=== PATIENT | male | born 1960 | race Two or more races ===

== ENCOUNTER 2020-12-21 07:49 | Inpatient (IN) | payer MEDICARE, OTHER ==
[~2020-12-21] VITALS: Ht 175.3 cm; Wt 133.8 kg
[2020-12-21 10:10] LABS: Basophils # (auto) 0.1 10 ^3/uL (0-0.2); Eosinophils # (auto) 0 10 ^3/uL (0-0.8); Monocytes # (auto) 0.7 10 ^3/uL (0-1.3)
[2020-12-21 10:13] LABS: Basophils % (auto) 0.8 % (0.0-2.0); Hematocrit 46.7 % (41.0-53.0); Lymphocytes # (auto) 1.8 10 ^3/uL (0.4-5.4); Lymphocytes % (auto) 17.4 % (10.0-50.0); Mean Corpuscular Hemoglobin 25.2 pg (28.0-32.0); Mean Corpuscular Hgb Conc. 32.1 g/dL (32.0-36.0); Mean Corpuscular Volume 78.4 fL (80.0-100.0); Monocytes % (auto) 6.8 % (0.0-12.0); Neutrophils # (auto) 7.7 10 ^3/uL (1.6-8.6); Red Blood Cells 5.95 10^6/uL (4.5-5.90); Red Cell Distribution Width 20.7 % (11.8-14.3); White Blood Cell 10.2 10^3/uL (4.4-10.8)
[2020-12-21 10:21] LABS: INR 1.01 (0.9-1.15); Partial Thromboplastin Time 23.8 sec (23.0-31.2)
[2020-12-21 10:26] LABS: Albumin 3.8 g/dL (3.4-5.0); Calcium 10.1 mg/dL (8.5-10.1); Potassium 4.3 mmol/L (3.5-5.1)
[2020-12-21 10:31] LABS: BUN/Creatinine Ratio 25.9; Bilirubin, Total 0.3 mg/dL (0.2-1.0)
[2020-12-21 10:34] LABS: Amylase 156 U/L (25-115); Magnesium 2.2 mg/dL (1.6-2.6)
[2020-12-21 10:36] LABS: Lactic Acid w/Reflex 2.9 mmol/L (0.4-2.0)
[2020-12-21 10:44] LABS: Lipase 2130 U/L (73-393)
[2020-12-21] MEDS ORDERED: THIAMINE INJ 100 MG in SODIUM CHLORIDE 0.9% 1,000 ML IV ONE (11:00)
[2020-12-21] MEDS ORDERED: SODIUM CHLORIDE 0.9% 1,000 ML IV ONE ×2 (11:00→12:15)
[2020-12-21] MEDS ORDERED: MULTIPLE VITAMIN TAB PO ONE (12:30)
[2020-12-21] MEDS ORDERED: NITROGLYCERIN 0.4 MG SL TAB SL PRN (12:30)
[2020-12-21] MEDS ORDERED: ONDANSETRON HCL 4 MG/2 ML VIAL IV PRN (12:30)
[2020-12-21] MEDS ORDERED: MORPHINE SULFATE INJECTION 2 MG/ML SYRG IV PRN ×2 (12:30)
[2020-12-21] MEDS ORDERED: THIAMINE 100mg/ml INJ (200mg/2ml VIAL) IV ONE (13:15)
[2020-12-21] MEDS: LACTATED RINGER'S 1,000 ML IV SCH ×2 (14:20→23:01)
[2020-12-21] MEDS: SUCRALFATE 1 GM/10 ML ORAL SUSP PO SCH ×2 (18:00→23:02)
[2020-12-21 20:00] VITALS: BP 152/96
[2020-12-21] MEDS: PANTOPRAZOLE 40 MG/10 ML VIAL INJ IV SCH (23:01)
[2020-12-21 23:22] VITALS: BP 152/96
[2020-12-22] VITALS (7 sets, daily range): BP systolic 130–153; BP diastolic 78–94
[2020-12-22] MEDS: LACTATED RINGER'S 1,000 ML IV SCH ×3 (04:25→20:53)
[2020-12-22] MEDS: SUCRALFATE 1 GM/10 ML ORAL SUSP PO SCH ×4 (06:05→21:21)
[2020-12-22] MEDS ORDERED: ATOR40TA52 PO (07:54)
[2020-12-22] MEDS ORDERED: GABA300C10 PO (07:54)
[2020-12-22] MEDS ORDERED: LISI-275 PO (07:54)
[2020-12-22] MEDS ORDERED: SUCR1TAB PO (07:54)
[2020-12-22] MEDS ORDERED: PNEUMOCOCCAL VACC POLYS 25 MCG/0.5 ML VIAL IM ONE (08:00)
[2020-12-22 09:23] LABS: Basophils # (auto) 0 10 ^3/uL (0-0.2); Basophils % (auto) 0.6 % (0.0-2.0); Eosinophils # (auto) 0 10 ^3/uL (0-0.8); Eosinophils % (auto) 0.5 % (0.0-7.0); Hematocrit 40.7 % (41.0-53.0); Hemoglobin 13.1 g/dL (13.5-17.5); Lymphocytes # (auto) 1.3 10 ^3/uL (0.4-5.4); Lymphocytes % (auto) 18.2 % (10.0-50.0); Mean Corpuscular Hemoglobin 25.2 pg (28.0-32.0); Mean Corpuscular Hgb Conc. 32.1 g/dL (32.0-36.0); Mean Corpuscular Volume 78.4 fL (80.0-100.0); Monocytes # (auto) 0.8 10 ^3/uL (0-1.3); Monocytes % (auto) 10.5 % (0.0-12.0); Neutrophils # (auto) 5.2 10 ^3/uL (1.6-8.6); Neutrophils % (auto) 70.2 % (37.0-80.0); Nucleated Red Blood Cells % 0.3 %; Red Blood Cells 5.19 10^6/uL (4.5-5.90); White Blood Cell 7.4 10^3/uL (4.4-10.8)
[2020-12-22 09:24] LABS: Red Cell Distribution Width 20.7 % (11.8-14.3)
[2020-12-22 09:36] LABS: INR 0.99 (0.9-1.15); Partial Thromboplastin Time 24.8 sec (23.0-31.2)
[2020-12-22 09:40] LABS: Albumin 3.2 g/dL (3.4-5.0); BUN/Creatinine Ratio 15.4; Bilirubin, Total 0.6 mg/dL (0.2-1.0); Calcium 9.5 mg/dL (8.5-10.1); Total Protein 6.7 g/dL (6.4-8.2)
[2020-12-22] MEDS: THIAMINE HCL 100 MG TAB PO SCH (09:54)
[2020-12-22] MEDS: FOLIC ACID 1 MG TAB PO SCH (09:54)
[2020-12-22] MEDS: PANTOPRAZOLE 40 MG/10 ML VIAL INJ IV SCH ×2 (09:54→21:21)
[2020-12-22 11:45] LABS: Urine WBC None Seen /hpf (0 - 3)
[2020-12-22 11:56] LABS: Urine Bacteria NONE SEEN /hpf (None Seen); Urine Blood Negative /uL (Negative); Urine Specific Gravity 1.012 (1.001-1.035)
[2020-12-22] MEDS ORDERED: cloNIDine HCL 0.1 MG TAB PO PRN (14:30)
[2020-12-22] MEDS: ACETAMINOPHEN 500 MG TAB PO PRN (15:33)
[2020-12-23] MEDS: ACETAMINOPHEN 500 MG TAB PO PRN (01:47)
[2020-12-23] MEDS: LACTATED RINGER'S 1,000 ML IV SCH ×4 (04:23→23:33)
[2020-12-23 05:00] VITALS: BP 143/83
[2020-12-23] MEDS: SUCRALFATE 1 GM/10 ML ORAL SUSP PO SCH ×4 (06:27→22:22)
[2020-12-23 06:48] LABS: Albumin 3.1 g/dL (3.4-5.0); Calcium 10.1 mg/dL (8.5-10.1); Potassium 3.9 mmol/L (3.5-5.1)
[2020-12-23 06:50] LABS: BUN/Creatinine Ratio 7.1
[2020-12-23 06:51] LABS: Basophils # (auto) 0 10 ^3/uL (0-0.2); Eosinophils # (auto) 0.1 10 ^3/uL (0-0.8); Lymphocytes # (auto) 1.5 10 ^3/uL (0.4-5.4); Monocytes # (auto) 0.7 10 ^3/uL (0-1.3); Neutrophils # (auto) 3.3 10 ^3/uL (1.6-8.6); White Blood Cell 5.6 10^3/uL (4.4-10.8)
[2020-12-23 06:52] LABS: Bilirubin, Total 0.5 mg/dL (0.2-1.0); Total Protein 6.2 g/dL (6.4-8.2)
[2020-12-23 06:53] LABS: Basophils % (auto) 0.9 % (0.0-2.0); Eosinophils % (auto) 1.8 % (0.0-7.0); Hematocrit 40.2 % (41.0-53.0); Hemoglobin 13.1 g/dL (13.5-17.5); Mean Corpuscular Hemoglobin 25.8 pg (28.0-32.0); Mean Corpuscular Hgb Conc. 32.5 g/dL (32.0-36.0); Mean Corpuscular Volume 79.3 fL (80.0-100.0); Monocytes % (auto) 13.3 % (0.0-12.0); Red Blood Cells 5.06 10^6/uL (4.5-5.90); Red Cell Distribution Width 20.6 % (11.8-14.3)
[2020-12-23 08:00] VITALS: BP 120/89
[2020-12-23 09:00] VITALS: BP 120/89
[2020-12-23] MEDS: FOLIC ACID 1 MG TAB PO SCH (09:22)
[2020-12-23] MEDS: PANTOPRAZOLE 40 MG/10 ML VIAL INJ IV SCH (09:22)
[2020-12-23] MEDS: THIAMINE HCL 100 MG TAB PO SCH (09:22)
[2020-12-23 13:00] VITALS: BP 147/91
[2020-12-23 16:53] VITALS: BP 157/85
[2020-12-23] MEDS ORDERED: THROAT LOZENGES(CEPASTAT) MT PRN (22:15)
[2020-12-24 05:15] VITALS: BP 158/83
[2020-12-24] MEDS: SUCRALFATE 1 GM/10 ML ORAL SUSP PO SCH ×2 (06:25→12:00)
[2020-12-24 09:00] VITALS: BP 147/85
[2020-12-24] MEDS: LACTATED RINGER'S 1,000 ML IV SCH (09:32)
[2020-12-24] MEDS: FOLIC ACID 1 MG TAB PO SCH (09:50)
[2020-12-24] MEDS: THIAMINE HCL 100 MG TAB PO SCH (09:50)
[2020-12-24] MEDS ORDERED: PANTOPRAZOLE 40 MG TAB PO SCH (10:00)
[2020-12-24 13:00] VITALS: BP 149/91
[2020-12-24 17:00] VITALS: BP 155/74
[2021-05-24] MEDS ORDERED: ASPI1TAB20 PO (03:23)
== END 2020-12-24 17:00 | disposition home or self-care (01) | DRG 438 ==
LOC: ER 07:49 → TELE 07:50 → TELE-WESTW 12-22 03:43
PROVIDERS: ADMIT Nurse Practitioner Acute Care; ATTEND Internal Medicine
DX: K85.20 Alcohol induced acute pancreatitis without necrosis or infection (principal); U07.1 COVID-19; J12.82 Pneumonia due to coronavirus disease 2019; Z68.41 Body mass index [BMI] 40.0-44.9, adult; K29.20 Alcoholic gastritis without bleeding; K57.30 Diverticulosis of large intestine without perforation or abscess without bleeding; F10.229 Alcohol dependence with intoxication, unspecified; E66.9 Obesity, unspecified; I10 Essential (primary) hypertension; K44.9 Diaphragmatic hernia without obstruction or gangrene; Y90.7 Blood alcohol level of 200-239 mg/100 ml; E78.5 Hyperlipidemia, unspecified; R16.0 Hepatomegaly, not elsewhere classified; N21.0 Calculus in bladder; K76.0 Fatty (change of) liver, not elsewhere classified; Z87.11 Personal history of peptic ulcer disease
CPT/HCPCS: 36415; 74176; 80053; 80320; 81001; 82150; 82270; 83605; 83690; 83735; 84484; 85025; 85610; 85730; 87426; C9113; G0378; J2405

== ENCOUNTER 2021-05-23 20:08 | Inpatient (IN) | payer MEDICARE, OTHER ==
[~2021-05-23] VITALS: Ht 175.3 cm; Wt 124.7 kg
[~2021-05-23 20:08] MED LIST: ATOR40TA52 PO; GABA300C10 PO; LISI-275 PO; SUCR1TAB PO
[2021-05-23] MEDS ORDERED: SODIUM CHLORIDE 0.9% 500 ML IV ONE (20:30)
[2021-05-23 21:01] LABS: Basophils # (auto) 0 10 ^3/uL (0-0.2); Eosinophils # (auto) 0.5 10 ^3/uL (0-0.8); Hematocrit 46.6 % (41.0-53.0); Hemoglobin 15.3 g/dL (13.5-17.5); Lymphocytes # (auto) 1.9 10 ^3/uL (0.4-5.4); Lymphocytes % (auto) 24.8 % (10.0-50.0); Mean Corpuscular Hemoglobin 29.7 pg (28.0-32.0); Mean Corpuscular Hgb Conc. 32.9 g/dL (32.0-36.0); Mean Corpuscular Volume 90.3 fL (80.0-100.0); Monocytes # (auto) 0.5 10 ^3/uL (0-1.3); Neutrophils # (auto) 4.9 10 ^3/uL (1.6-8.6); Neutrophils % (auto) 63.2 % (37.0-80.0); Red Blood Cells 5.16 10^6/uL (4.5-5.90); Red Cell Distribution Width 14.9 % (11.8-14.3); White Blood Cell 7.7 10^3/uL (4.4-10.8)
[2021-05-23 21:13] LABS: Albumin 3.5 g/dL (3.4-5.0); Anion Gap 8 (5-15); Blood Urea Nitrogen 29 mg/dL (7-18); Calcium 9.8 mg/dL (8.5-10.1); Carbon Dioxide 24 mmol/L (21-32); Chloride 106 mmol/L (98-107); Glucose 138 mg/dL (74-106); Magnesium 2.3 mg/dL (1.6-2.6); Potassium 4.8 mmol/L (3.5-5.1); Sodium 138 mmol/L (136-145)
[2021-05-23 21:19] LABS: Alanine Aminotransferase 33 U/L (16-61); Alkaline Phosphatase 106 U/L (45-117); Aspartate Aminotransferase 28 U/L (15-37); BUN/Creatinine Ratio 17.3; Bilirubin, Total 0.2 mg/dL (0.2-1.0); GFR African American 54 mL/min; GFR Non-African American 44 mL/min; Total Protein 6.9 g/dL (6.4-8.2)
[2021-05-23] MEDS ORDERED: MORPHINE SULF INJ 2 MG/ML SYRINGE 1ML IV PRN (21:30)
[2021-05-23] MEDS ORDERED: ALBUMIN 5% 250 ML IV ONE (21:30)
[2021-05-23] MEDS ORDERED: ONDANSETRON HCL 4 MG/2 ML VIAL IV PRN (21:30)
[2021-05-23] MEDS ORDERED: NITROGLYCERIN 0.4 MG SL TAB SL PRN (21:30)
[2021-05-23] MEDS ORDERED: ACETAMINOPHEN 325 MG TAB PO PRN (21:30)
[2021-05-23 21:40] LABS: Lactic Acid w/Reflex 2.3 mmol/L (0.4-2.0)
[2021-05-23] MEDS ORDERED: ATORVASTATIN 20 MG TAB PO SCH (22:00)
[2021-05-23] MEDS: SODIUM CHLORIDE 0.9% 1,000 ML IV SCH (22:28)
[2021-05-23] MEDS ORDERED: cefTRIAXone 1GM/50ML D5W 50 ML IV ONE (23:00)
[2021-05-24 03:13] LABS: Urine Bacteria FEW /hpf (None Seen); Urine Blood Negative /uL (Negative); Urine Hyaline Cast MANY /lpf (0 - 2); Urine Mucus FEW (None Seen); Urine Specific Gravity 1.021 (1.001-1.035); Urine WBC 6 /hpf (0 - 3)
[2021-05-24] MEDS ORDERED: ASPI-231 PO (03:23)
[2021-05-24 05:00] VITALS: BP 131/66
[2021-05-24 08:05] VITALS: BP 141/78
[2021-05-24] MEDS: SODIUM CHLORIDE 0.9% 1,000 ML IV SCH (08:37)
[2021-05-24 08:42] VITALS: BP 141/78
[2021-05-24 09:36] LABS: Basophils # (auto) 0 10 ^3/uL (0-0.2); Basophils % (auto) 0.7 % (0.0-2.0); Eosinophils # (auto) 0.1 10 ^3/uL (0-0.8); Eosinophils % (auto) 1.6 % (0.0-7.0); Hematocrit 43.8 % (41.0-53.0); Hemoglobin 14.6 g/dL (13.5-17.5); Lymphocytes # (auto) 1.5 10 ^3/uL (0.4-5.4); Lymphocytes % (auto) 25.1 % (10.0-50.0); Mean Corpuscular Hemoglobin 29.8 pg (28.0-32.0); Mean Corpuscular Hgb Conc. 33.4 g/dL (32.0-36.0); Mean Corpuscular Volume 89.3 fL (80.0-100.0); Monocytes # (auto) 0.6 10 ^3/uL (0-1.3); Monocytes % (auto) 9.2 % (0.0-12.0); Neutrophils # (auto) 3.8 10 ^3/uL (1.6-8.6); Neutrophils % (auto) 63.4 % (37.0-80.0); Nucleated Red Blood Cells % 0.1 %; Red Cell Distribution Width 15.1 % (11.8-14.3)
[2021-05-24 09:54] LABS: BUN/Creatinine Ratio 25.9; Calcium 9.3 mg/dL (8.5-10.1); Potassium 4.7 mmol/L (3.5-5.1)
[2021-05-24] MEDS ORDERED: PANTOPRAZOLE 40 MG TAB PO SCH (10:00)
[2021-05-24 12:53] VITALS: BP 157/85
[2021-05-24 12:58] VITALS: BP 157/85
[2021-05-24] MEDS ORDERED: cefTRIAXone 1GM/50ML D5W 50 ML IV SCH (22:00)
== END 2021-05-24 13:20 | disposition home or self-care (01) | DRG 315 ==
LOC: ER 20:12 → TELE 21:27 → TELE-WESTW 22:16
PROVIDERS: ADMIT Nurse Practitioner; ATTEND Family Medicine
DX: I95.9 Hypotension, unspecified (principal); N17.9 Acute kidney failure, unspecified; Z68.41 Body mass index [BMI] 40.0-44.9, adult; E86.0 Dehydration; E66.01 Morbid (severe) obesity due to excess calories; E78.00 Pure hypercholesterolemia, unspecified; E78.5 Hyperlipidemia, unspecified; Z20.822 Contact with and (suspected) exposure to COVID-19; I10 Essential (primary) hypertension; I25.2 Old myocardial infarction; Z83.3 Family history of diabetes mellitus
CPT/HCPCS: 36415; 71045; 80048; 80053; 81001; 82550; 83605; 83735; 83880; 84484; 85025; 85379; 87040; 87426; 93005; 93306; 96360; 96361; 99291; G0378; J0696

== ENCOUNTER 2021-08-28 12:33 | Emergency (ER) | payer MEDICARE, OTHER ==
[~2021-08-28] VITALS: Ht 175.3 cm; Wt 127.0 kg
[~2021-08-28 12:33] MED LIST changes: +ASPI1TAB20 PO; -SUCR1TAB PO
[2021-08-28 13:16] VITALS: BP 102/81
[2021-08-28] MEDS ORDERED: ONDANSETRON ODT 4 MG TAB PO ONE (15:15)
[2021-08-28] MEDS ORDERED: HYDROcodone-ACET 5/325MG TAB PO ONE (15:15)
== END 2021-08-28 15:34 | disposition home or self-care (01) ==
LOC: ER 12:33
DX: S83.91XA Sprain of unspecified site of right knee, initial encounter (principal); M71.21 Synovial cyst of popliteal space [Baker], right knee; X58.XXXA Exposure to other specified factors, initial encounter; Y93.89 Activity, other specified; Y92.89 Other specified places as the place of occurrence of the external cause; Y99.8 Other external cause status
CPT/HCPCS: 73700; 99284; Q0162

== ENCOUNTER 2021-12-23 12:06 | Emergency (ER) | payer MEDICARE, OTHER ==
[~2021-12-23] VITALS: Ht 175.3 cm; Wt 142.9 kg
[2021-12-23 12:13] VITALS: BP 122/99
[2021-12-23 13:25] LABS: Basophils # (auto) 0.1 10 ^3/uL (0-0.2); Eosinophils # (auto) 0.1 10 ^3/uL (0-0.8); Eosinophils % (auto) 0.9 % (0.0-7.0); Hematocrit 46.5 % (41.0-53.0); Hemoglobin 15.3 g/dL (13.5-17.5); Lymphocytes # (auto) 1.5 10 ^3/uL (0.4-5.4); Lymphocytes % (auto) 22.1 % (10.0-50.0); Mean Corpuscular Hemoglobin 29.9 pg (28.0-32.0); Mean Corpuscular Hgb Conc. 32.9 g/dL (32.0-36.0); Mean Corpuscular Volume 90.8 fL (80.0-100.0); Monocytes # (auto) 0.8 10 ^3/uL (0-1.3); Neutrophils # (auto) 4.2 10 ^3/uL (1.6-8.6); Nucleated Red Blood Cells % 0.1 %; Red Blood Cells 5.12 10^6/uL (4.5-5.90); Red Cell Distribution Width 14.3 % (11.8-14.3); White Blood Cell 6.6 10^3/uL (4.4-10.8)
[2021-12-23 13:42] LABS: Albumin 3.5 g/dL (3.4-5.0); Potassium 4.3 mmol/L (3.5-5.1)
[2021-12-23 13:50] LABS: BUN/Creatinine Ratio 16.3; Bilirubin, Total 0.7 mg/dL (0.2-1.0); Total Protein 6.6 g/dL (6.4-8.2)
== END 2021-12-23 18:26 | disposition left against medical advice (07) ==
LOC: ER 12:06
DX: R22.43 Localized swelling, mass and lump, lower limb, bilateral (principal); I10 Essential (primary) hypertension; I25.2 Old myocardial infarction; E78.5 Hyperlipidemia, unspecified; Z79.82 Long term (current) use of aspirin; Z79.899 Other long term (current) drug therapy
CPT/HCPCS: 36415; 71046; 80053; 83880; 84484; 85025; 93005; 93970

== ENCOUNTER 2022-01-08 14:27 | Inpatient (IN) | payer MEDICARE, OTHER ==
[~2022-01-08] VITALS: Ht 175.3 cm; Wt 145.0 kg
[2022-01-08] MEDS ORDERED: dilTIAZem 25 MG/5 ML VIAL IV ONE ×3 (15:15→17:45)
[2022-01-08 15:49] LABS: Basophils # (auto) 0.1 10 ^3/uL (0-0.2); Basophils % (auto) 0.6 % (0.0-2.0); Eosinophils # (auto) 0.1 10 ^3/uL (0-0.8); Eosinophils % (auto) 0.7 % (0.0-7.0); Hematocrit 40.1 % (41.0-53.0); Hemoglobin 13.2 g/dL (13.5-17.5); Lymphocytes # (auto) 1.9 10 ^3/uL (0.4-5.4); Lymphocytes % (auto) 20.2 % (10.0-50.0); Mean Corpuscular Hemoglobin 29.6 pg (28.0-32.0); Mean Corpuscular Volume 89.8 fL (80.0-100.0); Monocytes % (auto) 10.6 % (0.0-12.0); Neutrophils # (auto) 6.2 10 ^3/uL (1.6-8.6); Neutrophils % (auto) 67.9 % (37.0-80.0); Red Blood Cells 4.47 10^6/uL (4.5-5.90); Red Cell Distribution Width 13.8 % (11.8-14.3); White Blood Cell 9.2 10^3/uL (4.4-10.8)
[2022-01-08 16:02] LABS: Alanine Aminotransferase 17 U/L (16-61); Anion Gap 4 (5-15); Aspartate Aminotransferase 16 U/L (15-37); BUN/Creatinine Ratio 40.2; Blood Urea Nitrogen 39 mg/dL (7-18); Calcium 9.1 mg/dL (8.5-10.1); Carbon Dioxide 26 mmol/L (21-32); Chloride 110 mmol/L (98-107); GFR African American 101 mL/min; GFR Non-African American 83 mL/min; Glucose 114 mg/dL (74-106); Potassium 5.1 mmol/L (3.5-5.1); Sodium 140 mmol/L (136-145)
[2022-01-08 16:05] LABS: Alkaline Phosphatase 48 U/L (45-117); Bilirubin, Total 0.6 mg/dL (0.2-1.0); Total Protein 5.9 g/dL (6.4-8.2)
[2022-01-08 16:23] LABS: INR 1.13 (0.9-1.15)
[2022-01-08] MEDS ORDERED: DIGOXIN 0.125 MG TAB PO ONE (19:15)
[2022-01-08] MEDS ORDERED: METOPROLOL TARTRATE 1MG/1ML-5ML VIAL IV PRN (19:15)
[2022-01-08] MEDS ORDERED: NITROGLYCERIN 0.4 MG SL TAB SL PRN (19:15)
[2022-01-08] MEDS ORDERED: MORPHINE SULFATE INJECTION 2 MG/ML SYRG IV PRN ×2 (19:15→21:15)
[2022-01-08] MEDS ORDERED: ONDANSETRON HCL 4 MG/2 ML VIAL IV PRN (21:15)
[2022-01-08] MEDS ORDERED: MULTIPLE VITAMINS W/ MINERALS TAB PO ONE (21:15)
[2022-01-08] MEDS ORDERED: FOLIC ACID 1 MG TAB PO ONE (21:15)
[2022-01-08] MEDS ORDERED: SODIUM CHLORIDE 0.9% 1,000 ML IV SCH (21:15)
[2022-01-08] MEDS ORDERED: HYDROcodone-ACET 5/325MG TAB PO ONE (21:15)
[2022-01-08] MEDS ORDERED: DOCUSATE SOD 100 MG CAP PO PRN (21:15)
[2022-01-08] MEDS ORDERED: SUCRALFATE 1 GM/10 ML ORAL SUSP PO ONE (21:15)
[2022-01-08] MEDS: IPRATROPIUM BROM 0.5 MG/2.5ML INH SOL NEB ONE ×2 (21:15→21:59)
[2022-01-08] MEDS ORDERED: THIAMINE 100mg/ml INJ (200mg/2ml VIAL) IV ONE (21:15)
[2022-01-08] MEDS ORDERED: LORazepam 0.5 MG TAB PO PRN (21:15)
[2022-01-08] MEDS ORDERED: HYDROcodone-ACET 5/325MG TAB PO PRN (21:15)
[2022-01-08] MEDS ORDERED: LACTULOSE 20Gm/30ML SOLN PO PRN (21:15)
[2022-01-08] MEDS ORDERED: LORazepam 2MG/ML-1ML VIAL IV PRN (21:15)
[2022-01-08] MEDS ORDERED: cefTRIAXone 1GM/50ML D5W 50 ML IV ONE (21:30)
[2022-01-08] MEDS ORDERED: IPRATROPIUM BROM 0.5 MG/2.5ML INH SOL NEB SCH (22:00)
[2022-01-08] MEDS ORDERED: ATORVASTATIN 20 MG TAB PO SCH (22:00)
[2022-01-08] MEDS ORDERED: PANTOPRAZOLE 40 MG/10 ML VIAL INJ IV SCH (22:00)
[2022-01-08] MEDS ORDERED: IPRATROPIUM BROM 0.5 MG/2.5ML INH SOL NEB PRN (22:15)
[2022-01-08] MEDS: SUCRALFATE 1 GM/10 ML ORAL SUSP PO SCH (23:00)
[2022-01-08 23:41] LABS: INR 1.1 (0.9-1.15); Partial Thromboplastin Time 23.4 sec (23.6-33.0)
[2022-01-08] MEDS ORDERED: AMIODARONE HCL 150 MG in D5W 5% 100 ML IV ONE (23:45)
[2022-01-08 23:51] LABS: Magnesium 1.7 mg/dL (1.6-2.6); Phosphorus 2.1 mg/dL (2.5-4.90)
[2022-01-08] MEDS ORDERED: AMIODARONE HCL (50 MG/ ML) 3 ML VIAL IV ONE (23:57)
[2022-01-09 00:26] VITALS: BP 102/52
[2022-01-09 01:49] LABS: Alcohol, Urine < 3.0 mg/dL (0-10); Amphetamine Screen, Urine NEGATIVE (NEGATIVE); Barbiturate Scree,Urine NEGATIVE (NEGATIVE); Benzodiazephine Screen, Urine NEGATIVE (NEGATIVE); Cannabinoid Screen, Urine NEGATIVE (NEGATIVE); Cocaine Screen, Urine NEGATIVE (NEGATIVE); Phencyclidine Screen, Urine NEGATIVE (NEGATIVE)
[2022-01-09 01:52] LABS: Urine Bacteria NONE SEEN /hpf (None Seen); Urine Blood Negative /uL (Negative); Urine Specific Gravity 1.021 (1.001-1.035); Urine WBC <1 /hpf (0 - 3)
[2022-01-09 02:00] LABS: Opiate Scree,Urine NEGATIVE (NEGATIVE)
[2022-01-09 05:00] VITALS: BP 128/92
[2022-01-09] MEDS ORDERED: AMIODARONE 450mg/250ml AE 250 ML IV SCH ×2 (06:00)
[2022-01-09] MEDS ORDERED: FURO1TAB31 PO (06:02)
[2022-01-09] MEDS ORDERED: CARV25TA55 PO (06:02)
[2022-01-09] MEDS ORDERED: ATOR40TA52 PO (06:02)
[2022-01-09] MEDS ORDERED: DIGO0.12 PO (06:02)
[2022-01-09] MEDS: SUCRALFATE 1 GM/10 ML ORAL SUSP PO SCH (06:10)
[2022-01-09 07:25] LABS: Basophils # (auto) 0 10 ^3/uL (0-0.2); Basophils % (auto) 0.4 % (0.0-2.0); Eosinophils # (auto) 0.1 10 ^3/uL (0-0.8); Eosinophils % (auto) 0.6 % (0.0-7.0); Hematocrit 39.5 % (41.0-53.0); Hemoglobin 12.9 g/dL (13.5-17.5); Lymphocytes # (auto) 2.4 10 ^3/uL (0.4-5.4); Mean Corpuscular Hemoglobin 29.6 pg (28.0-32.0); Mean Corpuscular Hgb Conc. 32.8 g/dL (32.0-36.0); Mean Corpuscular Volume 90.3 fL (80.0-100.0); Monocytes % (auto) 10.9 % (0.0-12.0); Neutrophils # (auto) 5.7 10 ^3/uL (1.6-8.6); Neutrophils % (auto) 62.1 % (37.0-80.0); Red Blood Cells 4.37 10^6/uL (4.5-5.90); White Blood Cell 9.2 10^3/uL (4.4-10.8)
[2022-01-09 07:28] LABS: Albumin 3.6 g/dL (3.4-5.0); Calcium 8.8 mg/dL (8.5-10.1)
[2022-01-09 07:29] LABS: INR 1.08 (0.9-1.15); Partial Thromboplastin Time 23.1 sec (23.6-33.0)
[2022-01-09 07:31] LABS: BUN/Creatinine Ratio 43.1; Bilirubin, Total 0.9 mg/dL (0.2-1.0); CRP High Sensitivity 0.16 mg/dL (< 0.3); Phosphorus 2.7 mg/dL (2.5-4.90); Total Protein 6.7 g/dL (6.4-8.2)
[2022-01-09] MEDS ORDERED: PANCREATIC ENZYMES 4200 UNIT CAP PO SCH (08:00)
[2022-01-09] MEDS ORDERED: dilTIAZem 25 MG/5 ML VIAL IV ONE (09:00)
[2022-01-09] MEDS ORDERED: cefTRIAXone 1GM/50ML D5W 50 ML IV SCH (09:00)
[2022-01-09 09:24] VITALS: BP 136/101
[2022-01-09] MEDS ORDERED: MULTIPLE VITAMINS W/ MINERALS TAB PO SCH (10:00)
[2022-01-09] MEDS ORDERED: DIGOXIN 0.125 MG TAB PO SCH ×2 (10:00)
[2022-01-09] MEDS ORDERED: CYANOCOBALAMIN 500 MCG TAB PO SCH (10:00)
[2022-01-09] MEDS ORDERED: THIAMINE HCL 100 MG TAB PO SCH (10:00)
[2022-01-09] MEDS ORDERED: FOLIC ACID 1 MG TAB PO SCH (10:00)
[2022-01-09] MEDS ORDERED: dilTIAZem HCL 180MG ER CAP PO ONE (10:15)
[2022-01-09] MEDS ORDERED: DIGOXIN (250MCG/ML) 2 ML AMPULE IV ONE (10:15)
[2022-01-10] MEDS ORDERED: DIGOXIN 0.125 MG TAB PO SCH (10:00)
[2022-01-10] MEDS ORDERED: dilTIAZem HCL 180MG ER CAP PO SCH (10:00)
== END 2022-01-09 09:20 | disposition left against medical advice (07) | DRG 377 ==
LOC: ER 14:27 → TELE 19:01 → TELE-EAST 01-09 04:45
PROVIDERS: ADMIT Hospitalist; ATTEND Internal Medicine
DX: K92.2 Gastrointestinal hemorrhage, unspecified (principal); K85.90 Acute pancreatitis without necrosis or infection, unspecified; N39.0 Urinary tract infection, site not specified; E44.0 Moderate protein-calorie malnutrition; Z68.42 Body mass index [BMI] 45.0-49.9, adult; K86.1 Other chronic pancreatitis; I48.91 Unspecified atrial fibrillation; K76.0 Fatty (change of) liver, not elsewhere classified; Z53.29 Procedure and treatment not carried out because of patient's decision for other reasons; E07.9 Disorder of thyroid, unspecified; E66.01 Morbid (severe) obesity due to excess calories; E78.5 Hyperlipidemia, unspecified; I11.0 Hypertensive heart disease with heart failure; I50.9 Heart failure, unspecified; Z20.822 Contact with and (suspected) exposure to COVID-19; N20.9 Urinary calculus, unspecified; Z79.82 Long term (current) use of aspirin; Z83.3 Family history of diabetes mellitus; Z87.11 Personal history of peptic ulcer disease; Z79.899 Other long term (current) drug therapy
CPT/HCPCS: 36415; 71045; 80053; 80061; 80307; 81001; 82728; 83036; 83615; 83690; 83735; 83880; 84100; 84443; 84484; 85025; 85379; 85610; 85652; 85730; 86141; 86850; 86900; 86901; 87040; 87086; 87426; 93005; 94640; 96361; 96365; 96367; 96375; 96376; 99291; C9113; G0378; J0696; J7060

== ENCOUNTER 2022-02-16 16:16 | Inpatient (IN) | payer MEDICARE, OTHER ==
[~2022-02-16] VITALS: Ht 175.3 cm; Wt 150.2 kg
[~2022-02-16 16:16] MED LIST changes: +CARV25TA55 PO; +DIGO0.12 PO; +FURO1TAB31 PO
[2022-02-16] MEDS ORDERED: dilTIAZem 25 MG/5 ML VIAL IV ONE (16:45)
[2022-02-16] MEDS ORDERED: dilTIAZem 125mg/125ml BAG KIT 125 ML IV ONE (18:00)
[2022-02-16 18:20] LABS: Basophils # (auto) 0.1 10 ^3/uL (0-0.2); Basophils % (auto) 0.9 % (0.0-2.0); Eosinophils # (auto) 0 10 ^3/uL (0-0.8); Eosinophils % (auto) 0.6 % (0.0-7.0); Hematocrit 33.7 % (41.0-53.0); Hemoglobin 10.6 g/dL (13.5-17.5); Lymphocytes # (auto) 1.6 10 ^3/uL (0.4-5.4); Lymphocytes % (auto) 22.9 % (10.0-50.0); Mean Corpuscular Hemoglobin 24.4 pg (28.0-32.0); Mean Corpuscular Hgb Conc. 31.4 g/dL (32.0-36.0); Mean Corpuscular Volume 77.8 fL (80.0-100.0); Monocytes # (auto) 0.8 10 ^3/uL (0-1.3); Monocytes % (auto) 11.3 % (0.0-12.0); Neutrophils # (auto) 4.6 10 ^3/uL (1.6-8.6); Neutrophils % (auto) 64.3 % (37.0-80.0); Nucleated Red Blood Cells % 0.5 %; Red Blood Cells 4.33 10^6/uL (4.5-5.90); Red Cell Distribution Width 19.4 % (11.8-14.3); White Blood Cell 7.1 10^3/uL (4.4-10.8)
[2022-02-16 18:28] LABS: Albumin 3.2 g/dL (3.4-5.0); Calcium 8.9 mg/dL (8.5-10.1); Magnesium 1.7 mg/dL (1.6-2.6); Potassium 3.8 mmol/L (3.5-5.1)
[2022-02-16 18:30] LABS: Lactic Acid w/Reflex 4.8 mmol/L (0.4-2.0)
[2022-02-16 18:31] LABS: Bilirubin, Total 0.3 mg/dL (0.2-1.0); Total Protein 6.5 g/dL (6.4-8.2)
[2022-02-16 20:17] LABS: Urine Bacteria FEW /hpf (None Seen); Urine Blood Negative /uL (Negative); Urine Mucus FEW (None Seen); Urine Specific Gravity 1.025 (1.001-1.035); Urine WBC 1 /hpf (0 - 3)
[2022-02-16] MEDS ORDERED: dilTIAZem 125mg/125ml BAG KIT 100 ML IV SCH (21:30)
[2022-02-16] MEDS ORDERED: ONDANSETRON HCL 4 MG/2 ML VIAL IV PRN (21:30)
[2022-02-16] MEDS ORDERED: cefTRIAXone 1GM/50ML D5W 50 ML IV ONE (21:30)
[2022-02-16] MEDS ORDERED: NITROGLYCERIN 0.4 MG SL TAB SL PRN (21:30)
[2022-02-16] MEDS ORDERED: MORPHINE SULFATE INJECTION 2 MG/ML SYRG IV PRN (21:30)
[2022-02-16] MEDS ORDERED: ACETAMINOPHEN 325 MG TAB PO PRN (21:30)
[2022-02-16] MEDS: CARVEDILOL 12.5 MG TAB PO SCH (22:34)
[2022-02-16] MEDS: ATORVASTATIN 20 MG TAB PO SCH (22:34)
[2022-02-17] VITALS (18 sets, daily range): BP systolic 99–189; BP diastolic 57–133
[2022-02-17 03:53] LABS: Basophils # (auto) 0.1 10 ^3/uL (0-0.2); Basophils % (auto) 0.8 % (0.0-2.0); Eosinophils # (auto) 0 10 ^3/uL (0-0.8); Eosinophils % (auto) 0.5 % (0.0-7.0); Hematocrit 33.3 % (41.0-53.0); Hemoglobin 10.4 g/dL (13.5-17.5); Lymphocytes # (auto) 1.9 10 ^3/uL (0.4-5.4); Lymphocytes % (auto) 22.5 % (10.0-50.0); Mean Corpuscular Hemoglobin 24.4 pg (28.0-32.0); Mean Corpuscular Hgb Conc. 31.2 g/dL (32.0-36.0); Mean Corpuscular Volume 78.2 fL (80.0-100.0); Monocytes # (auto) 0.8 10 ^3/uL (0-1.3); Monocytes % (auto) 9.6 % (0.0-12.0); Neutrophils # (auto) 5.7 10 ^3/uL (1.6-8.6); Neutrophils % (auto) 66.6 % (37.0-80.0); Nucleated Red Blood Cells % 0.3 %; Red Blood Cells 4.25 10^6/uL (4.5-5.90); Red Cell Distribution Width 19.9 % (11.8-14.3); White Blood Cell 8.6 10^3/uL (4.4-10.8)
[2022-02-17 04:17] LABS: Potassium 4.2 mmol/L (3.5-5.1)
[2022-02-17 04:24] LABS: Albumin 3.1 g/dL (3.4-5.0); BUN/Creatinine Ratio 16.7; Calcium 9.2 mg/dL (8.5-10.1); Magnesium 1.8 mg/dL (1.6-2.6)
[2022-02-17 04:35] LABS: Bilirubin, Total 0.6 mg/dL (0.2-1.0); Total Protein 6.3 g/dL (6.4-8.2)
[2022-02-17] MEDS ORDERED: cefTRIAXone 1GM/50ML D5W 50 ML IV SCH (09:00)
[2022-02-17] MEDS: FUROSEMIDE 40 MG TAB PO SCH (09:49)
[2022-02-17] MEDS: PANTOPRAZOLE 40 MG TAB PO SCH (09:49)
[2022-02-17] MEDS: CARVEDILOL 12.5 MG TAB PO SCH ×2 (09:49→21:00)
[2022-02-17] MEDS: DIGOXIN 0.125 MG TAB PO SCH (09:49)
[2022-02-17] MEDS ORDERED: ENOXAPARIN SOD 40 MG/0.4 ML SYRINGE SC SCH ×2 (10:00→22:00)
[2022-02-17] MEDS ORDERED: OPTISON 3ml Vial for INJ IV ONE (10:15)
[2022-02-17] MEDS ORDERED: CARVEDILOL 3.125 MG TAB PO ONE (11:15)
[2022-02-17] MEDS ORDERED: DIGOXIN 0.25 MG TAB PO ONE (11:15)
[2022-02-17] MEDS ORDERED: dilTIAZem 25 MG/5 ML VIAL IV ONE (18:45)
[2022-02-17] MEDS: APIXABAN 5 MG TAB PO SCH (20:59)
[2022-02-17] MEDS: ATORVASTATIN 20 MG TAB PO SCH (20:59)
[2022-02-18 05:00] VITALS: BP 105/52
[2022-02-18 08:37] VITALS: BP 109/67
[2022-02-18] MEDS: PANTOPRAZOLE 40 MG TAB PO SCH (10:17)
[2022-02-18] MEDS: DIGOXIN 0.125 MG TAB PO SCH (10:19)
[2022-02-18] MEDS: CARVEDILOL 12.5 MG TAB PO SCH ×2 (10:19→21:16)
[2022-02-18] MEDS: APIXABAN 5 MG TAB PO SCH ×2 (10:19→21:16)
[2022-02-18] MEDS: FUROSEMIDE 40 MG TAB PO SCH (10:20)
[2022-02-18 11:30] VITALS: BP 154/67
[2022-02-18] MEDS: traMADol HCL 50 MG TAB PO PRN (13:28)
[2022-02-18 17:02] VITALS: BP 114/71
[2022-02-18 17:15] VITALS: BP 114/71
[2022-02-18] MEDS ORDERED: dilTIAZem 25 MG/5 ML VIAL IV ONE (19:00)
[2022-02-18] MEDS: ATORVASTATIN 20 MG TAB PO SCH (21:16)
[2022-02-18 22:00] VITALS: BP 114/60
[2022-02-19 05:00] VITALS: BP 114/54
[2022-02-19] MEDS: traMADol HCL 50 MG TAB PO PRN ×3 (06:22→21:23)
[2022-02-19 09:00] VITALS: BP 143/65
[2022-02-19] MEDS: APIXABAN 5 MG TAB PO SCH ×2 (10:32→21:13)
[2022-02-19] MEDS: DIGOXIN 0.125 MG TAB PO SCH (10:32)
[2022-02-19] MEDS: CARVEDILOL 12.5 MG TAB PO SCH ×2 (10:32→21:12)
[2022-02-19] MEDS: PANTOPRAZOLE 40 MG TAB PO SCH (10:33)
[2022-02-19] MEDS: FUROSEMIDE 40 MG TAB PO SCH (10:33)
[2022-02-19 12:14] VITALS: BP 108/64
[2022-02-19] MEDS ORDERED: DEXTROSE (50%) 50ML SYRG IV PRN (15:15)
[2022-02-19 16:00] VITALS: BP 122/76
[2022-02-19] MEDS: InsuLIN REG 1unit/0.01ml Soln (100units/ml) SC SCH ×2 (17:00→21:19)
[2022-02-19] MEDS: ACCU-CHEK COMFORT CURVE STRIP VI SCH ×2 (17:05→21:21)
[2022-02-19] MEDS: ATORVASTATIN 20 MG TAB PO SCH (21:14)
[2022-02-19 22:00] VITALS: BP 136/83
[2022-02-20 04:52] VITALS: BP 117/51
[2022-02-20 05:00] LABS: Hematocrit 32.2 % (41.0-53.0); Hemoglobin 10.2 g/dL (13.5-17.5)
[2022-02-20 05:21] LABS: Calcium 9.3 mg/dL (8.5-10.1); Magnesium 1.6 mg/dL (1.6-2.6)
[2022-02-20 05:23] LABS: BUN/Creatinine Ratio 15.3
[2022-02-20] MEDS: ACCU-CHEK COMFORT CURVE STRIP VI SCH ×4 (05:42→20:44)
[2022-02-20] MEDS: InsuLIN REG 1unit/0.01ml Soln (100units/ml) SC SCH ×4 (05:47→20:48)
[2022-02-20 09:00] VITALS: BP 136/83
[2022-02-20] MEDS: APIXABAN 5 MG TAB PO SCH ×2 (10:15→20:36)
[2022-02-20] MEDS: CARVEDILOL 12.5 MG TAB PO SCH ×2 (10:15→20:40)
[2022-02-20] MEDS: DIGOXIN 0.125 MG TAB PO SCH (10:16)
[2022-02-20] MEDS: FUROSEMIDE 40 MG TAB PO SCH (10:16)
[2022-02-20 13:00] VITALS: BP 114/61
[2022-02-20] MEDS ORDERED: ERGOCALCIFEROL 50,000 UNIT(1.25MG) CAP PO SCH (13:45)
[2022-02-20] MEDS ORDERED: MAGNESIUM SULFATE 1GM/100ML 100 ML IV ONE (13:45)
[2022-02-20 17:00] VITALS: BP 112/68
[2022-02-20] MEDS: ATORVASTATIN 20 MG TAB PO SCH (20:40)
[2022-02-20] MEDS: traMADol HCL 50 MG TAB PO PRN (20:41)
[2022-02-20 22:00] VITALS: BP 108/70
[2022-02-21 05:00] VITALS: BP 106/72
[2022-02-21] MEDS: ACCU-CHEK COMFORT CURVE STRIP VI SCH ×2 (05:57→11:30)
[2022-02-21] MEDS: InsuLIN REG 1unit/0.01ml Soln (100units/ml) SC SCH ×2 (06:00→12:19)
[2022-02-21 09:00] VITALS: BP 98/65
[2022-02-21] MEDS: APIXABAN 5 MG TAB PO SCH (09:30)
[2022-02-21] MEDS: FUROSEMIDE 40 MG TAB PO SCH (09:30)
[2022-02-21] MEDS: DIGOXIN 0.125 MG TAB PO SCH (09:31)
[2022-02-21] MEDS: CARVEDILOL 12.5 MG TAB PO SCH (09:32)
[2022-02-21] MEDS: traMADol HCL 50 MG TAB PO PRN (09:35)
[2022-02-21 13:00] VITALS: BP 102/62
[2022-02-21] MEDS ORDERED: APIX5TAB PO (13:04)
[2022-02-21] MEDS ORDERED: METF-370 PO (13:04)
[2022-02-21] MEDS ORDERED: CHOL20007 PO (13:04)
[2022-02-21] MEDS ORDERED: CARV25TA PO (13:04)
[2022-02-21 17:00] VITALS: BP 133/5
== END 2022-02-21 18:25 | disposition home or self-care (01) | DRG 291 ==
LOC: ER 16:22 → EDUNIT# 21:30 → OVERFLOW 21:30 → ICU WEST 23:42 → TELE-WESTW 02-17 12:43
PROVIDERS: ADMIT Nurse Practitioner; ATTEND Internal Medicine
PROC: 5A09357 Assistance with Respiratory Ventilation, Less than 24 Consecutive Hours, Continuous Positive Airway Pressure (ICD-10-PCS; principal; 2022-02-18)
DX: I11.0 Hypertensive heart disease with heart failure (principal); J96.00 Acute respiratory failure, unspecified whether with hypoxia or hypercapnia; I50.43 Acute on chronic combined systolic (congestive) and diastolic (congestive) heart failure; Z68.42 Body mass index [BMI] 45.0-49.9, adult; I48.0 Paroxysmal atrial fibrillation; D64.9 Anemia, unspecified; E66.01 Morbid (severe) obesity due to excess calories; E11.9 Type 2 diabetes mellitus without complications; E55.9 Vitamin D deficiency, unspecified; E78.5 Hyperlipidemia, unspecified; Z20.822 Contact with and (suspected) exposure to COVID-19; G47.33 Obstructive sleep apnea (adult) (pediatric); Z79.899 Other long term (current) drug therapy
CPT/HCPCS: 36415; 36600; 71045; 80048; 80053; 80061; 80162; 81001; 82306; 82805; 82962; 83036; 83605; 83735; 83880; 84443; 84484; 85014; 85018; 85025; 85379; 87040; 87081; 93005; 93306; 93970; 94660; 96365; 96375; 97163; 99291; G0378; J1815; Q9956

== ENCOUNTER → 2022-05-02 | Outpatient (CLI) | payer OTHER ==
[~2022-05-02] MED LIST changes: +APIX5TAB PO; -ASPI1TAB20 PO; -CARV25TA55 PO
[2022-05-02 13:29] LABS: Eosinophils # (auto) 0.1 10 ^3/uL (0-0.8); Hemoglobin 12.5 g/dL (13.5-17.5); Nucleated Red Blood Cells % 0.1 %
[2022-05-02 13:31] LABS: Basophils # (auto) 0 10 ^3/uL (0-0.2); Basophils % (auto) 0.6 % (0.0-2.0); Eosinophils % (auto) 1.3 % (0.0-7.0); Hematocrit 41.4 % (41.0-53.0); Lymphocytes # (auto) 1.8 10 ^3/uL (0.4-5.4); Lymphocytes % (auto) 21.3 % (10.0-50.0); Mean Corpuscular Hemoglobin 21.5 pg (28.0-32.0); Mean Corpuscular Hgb Conc. 30.2 g/dL (32.0-36.0); Mean Corpuscular Volume 71.1 fL (80.0-100.0); Monocytes # (auto) 0.8 10 ^3/uL (0-1.3); Monocytes % (auto) 9.1 % (0.0-12.0); Neutrophils # (auto) 5.8 10 ^3/uL (1.6-8.6); Neutrophils % (auto) 67.7 % (37.0-80.0); Red Blood Cells 5.83 10^6/uL (4.5-5.90); Red Cell Distribution Width 20.6 % (11.8-14.3); White Blood Cell 8.6 10^3/uL (4.4-10.8)
[2022-05-02 13:33] LABS: Albumin 3.4 g/dL (3.4-5.0); Calcium 11.4 mg/dL (8.5-10.1); Potassium 4.2 mmol/L (3.5-5.1)
[2022-05-02 13:38] LABS: BUN/Creatinine Ratio 13.2; Bilirubin, Total 0.8 mg/dL (0.2-1.0); Total Protein 7.1 g/dL (6.4-8.2)
== END | disposition home or self-care (01) ==
LOC: LAB 12:35
PROVIDERS: ATTEND Internal Medicine
DX: Z12.11 Encounter for screening for malignant neoplasm of colon (principal); I48.91 Unspecified atrial fibrillation; E11.9 Type 2 diabetes mellitus without complications; I10 Essential (primary) hypertension
CPT/HCPCS: 36415; 80053; 80061; 82306; 83036; 83880; 84153; 85025

== ENCOUNTER → 2022-05-24 | Outpatient (CLI) | payer OTHER ==
[2022-05-24 11:51] LABS: Creatinine, Urine 20 mg/dL (30.0-125.0); Protein, Urine < 5 mg/dL (0.0-11.9)
== END | disposition home or self-care (01) ==
LOC: LAB 09:51
PROVIDERS: ATTEND Internal Medicine
DX: I48.91 Unspecified atrial fibrillation (principal); E78.5 Hyperlipidemia, unspecified; E55.9 Vitamin D deficiency, unspecified; E11.9 Type 2 diabetes mellitus without complications
CPT/HCPCS: 36415; 80162; 82570; 84155; 84156; 84165; 85652

== ENCOUNTER → 2022-06-05 | Outpatient (CLI) | payer OTHER | END | disposition home or self-care (01) | LOC: LAB 08:39 | PROVIDERS: ATTEND Internal Medicine | DX: E83.52 Hypercalcemia (principal) | CPT/HCPCS: 36415; 82310 ==

== ENCOUNTER → 2022-06-05 | Outpatient (CLI) | payer OTHER | END | disposition home or self-care (01) | LOC: XYW 09:19 | PROVIDERS: ATTEND Internal Medicine | DX: M84.40XA Pathological fracture, unspecified site, initial encounter for fracture (principal) | CPT/HCPCS: 78306; A9503 ==

== ENCOUNTER → 2022-06-27 | Outpatient (CLI) | payer OTHER ==
[2022-06-27 13:24] LABS: Protein, Urine 19.5 mg/dL (0.0-11.9)
[2022-06-28 07:06] LABS: Immunoglobulin G, Serum 719 mg/dL (603-1613)
== END | disposition home or self-care (01) ==
LOC: LAB 12:13
PROVIDERS: ATTEND Internal Medicine
DX: E83.52 Hypercalcemia (principal)
CPT/HCPCS: 82570; 82784; 83970; 84156; 86334

== ENCOUNTER → 2022-07-17 | Outpatient (CLI) | payer OTHER ==
[~2022-07-17] MED LIST changes: +AMIO200T6 PO; +CHOL20007 PO; +DAPA1TAB4 PO; +METF-370 PO; +METO-6 PO
[2022-07-17 11:40] VITALS: BP 86/58
[2022-07-17 11:55] VITALS: BP 112/63
[2022-07-17 12:41] LABS: Basophils # (auto) 0 10 ^3/uL (0-0.2); Eosinophils # (auto) 0.1 10 ^3/uL (0-0.8); Hematocrit 46.9 % (41.0-53.0); Hemoglobin 14.2 g/dL (13.5-17.5); Mean Corpuscular Hemoglobin 22.8 pg (28.0-32.0); White Blood Cell 7.6 10^3/uL (4.4-10.8)
[2022-07-17 12:44] LABS: Basophils % (auto) 0.3 % (0.0-2.0); Lymphocytes % (auto) 26.5 % (10.0-50.0); Mean Corpuscular Hgb Conc. 30.3 g/dL (32.0-36.0); Mean Corpuscular Volume 75.5 fL (80.0-100.0); Monocytes # (auto) 0.8 10 ^3/uL (0-1.3); Neutrophils # (auto) 4.6 10 ^3/uL (1.6-8.6); Neutrophils % (auto) 61.2 % (37.0-80.0); Nucleated Red Blood Cells % 0.1 %; Red Blood Cells 6.21 10^6/uL (4.5-5.90); Red Cell Distribution Width 21.4 % (11.8-14.3)
[2022-07-17 12:46] LABS: Partial Thromboplastin Time 28.1 sec (24.6-33.4)
[2022-07-17 13:00] LABS: BUN/Creatinine Ratio 13.1; Calcium 11.2 mg/dL (8.5-10.1); Potassium 4.1 mmol/L (3.5-5.1)
== END | disposition home or self-care (01) ==
LOC: Rad HDHVI 11:08
PROVIDERS: ATTEND Internal Medicine Cardiovascular Disease
DX: Z01.818 Encounter for other preprocedural examination (principal); R79.1 Abnormal coagulation profile; I48.91 Unspecified atrial fibrillation; I50.9 Heart failure, unspecified; I70.0 Atherosclerosis of aorta; M47.814 Spondylosis without myelopathy or radiculopathy, thoracic region
CPT/HCPCS: 36415; 71046; 80048; 85025; 85610; 85730

== ENCOUNTER 2022-07-19 06:56 | Day surgery (SDC) | payer OTHER ==
[~2022-07-19] VITALS: Ht 170.2 cm; Wt 140.6 kg
[~2022-07-19 06:56] MED LIST changes: -LISI-275 PO
[2022-07-19] MEDS ORDERED: MIDAZOLAM HCL 5 MG/ML-1ML VIAL IM ONE (08:30)
[2022-07-19] MEDS ORDERED: fentaNYL CITRATE 100 MCG/2 ML VL IV ONE (08:30)
[2022-07-19] MEDS ORDERED: MIDAZOLAM HCL 2MG/2ML 2ml VIAL (1mg/ml) ONE (08:35)
[2022-07-19] MEDS ORDERED: fentaNYL CITRATE 100 MCG/2 ML VL ONE (08:35)
[2022-07-19 09:05] VITALS: BP 159/82
== END 2022-07-19 10:07 | disposition home or self-care (01) ==
LOC: CATH 06:56
PROVIDERS: ATTEND Internal Medicine Cardiovascular Disease
DX: I48.0 Paroxysmal atrial fibrillation (principal); E66.01 Morbid (severe) obesity due to excess calories; E11.21 Type 2 diabetes mellitus with diabetic nephropathy; E11.40 Type 2 diabetes mellitus with diabetic neuropathy, unspecified; E11.51 Type 2 diabetes mellitus with diabetic peripheral angiopathy without gangrene; G47.30 Sleep apnea, unspecified; Z83.3 Family history of diabetes mellitus; Z20.822 Contact with and (suspected) exposure to COVID-19; Z68.42 Body mass index [BMI] 45.0-49.9, adult
CPT/HCPCS: 92960; 93005; J2250; J3010; J7030; U0003; 99152

== ENCOUNTER → 2022-08-08 | Outpatient (CLI) | payer OTHER ==
[2022-08-08 09:23] LABS: Albumin 3.5 g/dL (3.4-5.0); Calcium 11.5 mg/dL (8.5-10.1); Potassium 4.2 mmol/L (3.5-5.1)
[2022-08-08 09:31] LABS: BUN/Creatinine Ratio 9.5; Bilirubin, Total 0.6 mg/dL (0.2-1.0)
== END | disposition home or self-care (01) ==
LOC: LAB 07:59
PROVIDERS: ATTEND Internal Medicine
DX: E11.9 Type 2 diabetes mellitus without complications (principal); I48.91 Unspecified atrial fibrillation; E55.9 Vitamin D deficiency, unspecified; I10 Essential (primary) hypertension
CPT/HCPCS: 36415; 80053; 80061; 83036

== ENCOUNTER → 2022-10-01 | Outpatient (CLI) | payer OTHER | END | disposition home or self-care (01) | LOC: LAB 10:55 | PROVIDERS: ATTEND Internal Medicine | DX: E83.52 Hypercalcemia (principal) | CPT/HCPCS: 36415; 82565; 84520 ==

== ENCOUNTER → 2022-10-15 | Outpatient (CLI) | payer OTHER | END | disposition home or self-care (01) | LOC: XYW 07:51 | PROVIDERS: ATTEND Internal Medicine | DX: I65.23 Occlusion and stenosis of bilateral carotid arteries (principal); R42 Dizziness and giddiness | CPT/HCPCS: 93886 ==

== ENCOUNTER → 2022-11-07 | Outpatient (CLI) | payer OTHER ==
[2022-11-07 13:11] LABS: Chloride 105 mmol/L (98-107); Potassium 4.3 mmol/L (3.5-5.1); Sodium 138 mmol/L (136-145)
[2022-11-07 13:23] LABS: Alanine Aminotransferase 49 U/L (16-61); Albumin 3.7 g/dL (3.4-5.0); Alkaline Phosphatase 73 U/L (45-117); Anion Gap 8 (5-15); Aspartate Aminotransferase 58 U/L (15-37); BUN/Creatinine Ratio 11.7; Bilirubin, Total 0.7 mg/dL (0.2-1.0); Blood Urea Nitrogen 11 mg/dL (7-18); Calcium 11.6 mg/dL (8.5-10.1); Carbon Dioxide 25 mmol/L (21-32); Cholesterol 189 mg/dL (< 200); GFR African American 105 mL/min; GFR Non-African American 86 mL/min; Glucose 102 mg/dL (74-106); HDL Cholesterol 44 mg/dL (40-59); Total Protein 7.1 g/dL (6.4-8.2); Triglycerides 423 mg/dL (< 150)
[2022-11-07 13:32] LABS: Protein, Urine 31.4 mg/dL (0.0-11.9)
== END | disposition home or self-care (01) ==
LOC: LAB 11:24
PROVIDERS: ATTEND Internal Medicine
DX: E11.9 Type 2 diabetes mellitus without complications (principal); E78.5 Hyperlipidemia, unspecified; E66.9 Obesity, unspecified
CPT/HCPCS: 36415; 80053; 80061; 82043; 82570; 83036; 84156

== ENCOUNTER → 2023-01-09 | Outpatient (CLI) | payer OTHER ==
[2023-01-09 12:21] LABS: Albumin 3.7 g/dL (3.4-5.0); BUN/Creatinine Ratio 13.5; Calcium 11.5 mg/dL (8.5-10.1); Potassium 4.4 mmol/L (3.5-5.1)
[2023-01-09 12:23] LABS: Bilirubin, Total 0.8 mg/dL (0.2-1.0); Total Protein 7.3 g/dL (6.4-8.2)
== END | disposition home or self-care (01) ==
LOC: LAB 10:52
PROVIDERS: ATTEND Internal Medicine
DX: E11.9 Type 2 diabetes mellitus without complications (principal)
CPT/HCPCS: 36415; 80053; 84156; 84166

== ENCOUNTER → 2023-03-25 | Outpatient (CLI) | payer OTHER ==
[2023-03-25 11:57] LABS: Albumin 3.6 g/dL (3.4-5.0)
[2023-03-25 12:03] LABS: Bilirubin, Direct 0.3 mg/dL (0-0.2); Bilirubin, Total 0.9 mg/dL (0.2-1.0); Total Protein 7.2 g/dL (6.4-8.2)
== END | disposition home or self-care (01) ==
LOC: LAB 10:45
PROVIDERS: ATTEND Internal Medicine
DX: E11.9 Type 2 diabetes mellitus without complications (principal); R79.89 Other specified abnormal findings of blood chemistry
CPT/HCPCS: 36415; 80076

== ENCOUNTER → 2023-04-30 | Outpatient (CLI) | payer OTHER ==
[~2023-04-30] MED LIST changes: +AMIO200T50 PO; -AMIO200T6 PO; +DIGO0.25 PO; +FEXO-42 PO; +GABA-1250 PO; -GABA300C10 PO; +LOSA25TA15 PO; +TIRZ2.5I SC
[2023-04-30 09:54] VITALS: BP 138/83
[2023-04-30 10:09] VITALS: BP 143/95
== END | disposition home or self-care (01) ==
LOC: Rad HDHVI 09:45
PROVIDERS: ATTEND Internal Medicine Cardiovascular Disease
DX: Z01.818 Encounter for other preprocedural examination (principal); I10 Essential (primary) hypertension; R06.02 Shortness of breath; I48.0 Paroxysmal atrial fibrillation; I49.5 Sick sinus syndrome; M51.34 Other intervertebral disc degeneration, thoracic region
CPT/HCPCS: 71046; 93005; G0463

== ENCOUNTER 2023-05-02 06:44 | Day surgery (SDC) | payer OTHER ==
[2023-04-30 11:08] LABS: Basophils # (auto) 0.1 10 ^3/uL (0-0.2); Basophils % (auto) 0.8 % (0.0-2.0); Eosinophils # (auto) 0.1 10 ^3/uL (0-0.8); Eosinophils % (auto) 1.4 % (0.0-7.0); Hematocrit 48.8 % (41.0-53.0); Hemoglobin 16.1 g/dL (13.5-17.5); Lymphocytes # (auto) 1.5 10 ^3/uL (0.4-5.4); Lymphocytes % (auto) 21.6 % (10.0-50.0); Mean Corpuscular Hemoglobin 30.1 pg (28.0-32.0); Mean Corpuscular Volume 91.1 fL (80.0-100.0); Monocytes # (auto) 0.8 10 ^3/uL (0-1.3); Monocytes % (auto) 11.1 % (0.0-12.0); Neutrophils # (auto) 4.6 10 ^3/uL (1.6-8.6); Neutrophils % (auto) 65.1 % (37.0-80.0); Nucleated Red Blood Cells % 0.2 %; Red Blood Cells 5.36 10^6/uL (4.5-5.90); Red Cell Distribution Width 14.6 % (11.8-14.3)
[2023-04-30 11:37] LABS: Partial Thromboplastin Time 27.4 sec (24.6-33.4)
[2023-04-30 12:02] LABS: Calcium 10.4 mg/dL (8.5-10.1); Potassium 4.2 mmol/L (3.5-5.1)
[2023-04-30 12:04] LABS: BUN/Creatinine Ratio 11.5 (10.0-20.0)
[~2023-05-02] VITALS: Ht 175.3 cm; Wt 134.0 kg
[~2023-05-02 06:44] MED LIST changes: -DIGO0.12 PO; -FURO1TAB31 PO; -GABA-1250 PO
[2023-05-02] MEDS ORDERED: VANCOMYCIN HCL 1000 MG VL ONE (10:18)
[2023-05-02] MEDS ORDERED: MIDAZOLAM HCL 2MG/2ML 2ml VIAL (1mg/ml) ONE (10:18)
[2023-05-02] MEDS ORDERED: fentaNYL CITRATE 100 MCG/2 ML VL ONE (10:18)
[2023-05-02] MEDS ORDERED: LIDOCAINE 2%HCL (LOCAL ANESTH.) INJ 20ML MDV ONE ×2 (10:19→10:32)
[2023-05-02] MEDS ORDERED: IODIXANOL 320MG/ML 100ML BTL IV ONE (10:19)
[2023-05-02] MEDS ORDERED: VANCOMYCIN 1GM/250ML 250 ML IV ONE (10:27)
[2023-05-02] MEDS ORDERED: IOHEXOL 350 MG/ML 100ML IJ ONE (10:49)
[2023-05-02] MEDS ORDERED: HYDROmorphone HCL 2 MG/ML VL/or syr ONE (10:53)
[2023-05-02] MEDS ORDERED: cloNIDine HCL 0.1 MG TAB PO ONE (13:30)
== END 2023-05-02 14:43 | disposition home or self-care (01) ==
LOC: CATH 06:44
PROVIDERS: ATTEND Internal Medicine Cardiovascular Disease
DX: I49.5 Sick sinus syndrome (principal); E11.40 Type 2 diabetes mellitus with diabetic neuropathy, unspecified; E11.21 Type 2 diabetes mellitus with diabetic nephropathy; I48.0 Paroxysmal atrial fibrillation; I10 Essential (primary) hypertension; E66.01 Morbid (severe) obesity due to excess calories; Z79.01 Long term (current) use of anticoagulants; Z79.899 Other long term (current) drug therapy; Z79.84 Long term (current) use of oral hypoglycemic drugs
CPT/HCPCS: 33208; 36415; 71045; 80048; 85025; 85610; 85730; C1785; C1898; J1170; J2250; J3010; J3370; J7030; Q9967; 93005; 99152; 99153

== ENCOUNTER → 2023-05-03 | Outpatient (CLI) | payer OTHER | END | disposition home or self-care (01) | LOC: Rad HDHVI 10:45 | PROVIDERS: ATTEND Internal Medicine Cardiovascular Disease | DX: J98.11 Atelectasis (principal); Z95.0 Presence of cardiac pacemaker | CPT/HCPCS: 71046 ==

== ENCOUNTER → 2023-05-06 | Outpatient (CLI) | payer OTHER | END | disposition home or self-care (01) | LOC: LAB 12:45 | PROVIDERS: ATTEND Internal Medicine | DX: E11.9 Type 2 diabetes mellitus without complications (principal) | CPT/HCPCS: 36415; 83036 ==

== ENCOUNTER → 2023-05-15 | Outpatient (CLI) | payer OTHER ==
[2023-05-15 10:37] LABS: Basophils # (auto) 0 10 ^3/uL (0-0.2); Basophils % (auto) 0.3 % (0.0-2.0); Eosinophils # (auto) 0.1 10 ^3/uL (0-0.8); Eosinophils % (auto) 1.2 % (0.0-7.0); Hematocrit 52.4 % (41.0-53.0); Hemoglobin 17.4 g/dL (13.5-17.5); Lymphocytes # (auto) 1.7 10 ^3/uL (0.4-5.4); Lymphocytes % (auto) 25.5 % (10.0-50.0); Mean Corpuscular Hemoglobin 29.8 pg (28.0-32.0); Mean Corpuscular Hgb Conc. 33.2 g/dL (32.0-36.0); Mean Corpuscular Volume 89.8 fL (80.0-100.0); Monocytes # (auto) 0.7 10 ^3/uL (0-1.3); Monocytes % (auto) 10.8 % (0.0-12.0); Neutrophils # (auto) 4.1 10 ^3/uL (1.6-8.6); Neutrophils % (auto) 62.2 % (37.0-80.0); Nucleated Red Blood Cells % 0.1 %; Red Blood Cells 5.84 10^6/uL (4.5-5.90); Red Cell Distribution Width 13.8 % (11.8-14.3); White Blood Cell 6.6 10^3/uL (4.4-10.8)
[2023-05-15 10:57] LABS: INR 1.1 (0.9-1.15)
[2023-05-15 11:40] LABS: Potassium 4.7 mmol/L (3.5-5.1)
[2023-05-15 11:50] LABS: Albumin 3.8 g/dL (3.4-5.0); BUN/Creatinine Ratio 11.8 (10.0-20.0); Calcium 11.3 mg/dL (8.5-10.1)
[2023-05-15 11:53] LABS: Bilirubin, Total 0.8 mg/dL (0.2-1.0); Total Protein 7.4 g/dL (6.4-8.2)
[2023-05-16 13:37] LABS: Hepatitis B Surface Antibody Positive (Negative)
[2023-05-16 14:12] LABS: Hepatitis A Total Antibody Negative (Negative)
[2023-05-16 14:44] LABS: Hepatitis C Antibody Negative (Negative)
== END | disposition home or self-care (01) ==
LOC: LAB 10:08
PROVIDERS: ATTEND Internal Medicine Gastroenterology
DX: R94.5 Abnormal results of liver function studies (principal)
CPT/HCPCS: 36415; 80053; 82728; 85025; 85610; 86038; 86704; 86706; 86708; 86803; 87340

== ENCOUNTER → 2023-07-08 | Outpatient (CLI) | payer OTHER ==
[~2023-07-08] MED LIST changes: +ASPI81CH74 PO; +CARV12.544 PO; +DIGO0.12 PO; +DIGO0.25; +FEXO-131; +FURO40TA4 PO; +LOS25T PO; +METF-869 PO; +METO1TAB9; +PANT40TA2 PO
[2023-07-08 11:10] LABS: Creatinine, Urine 130.12 mg/dL (30.0-125.0)
[2023-07-08 11:16] LABS: Cholesterol 128 mg/dL (< 200); Triglycerides 164 mg/dL (< 150)
[2023-07-08 11:17] LABS: LDL Cholesterol 70 mg/dL (< 100)
[2023-07-08 11:18] LABS: HDL Cholesterol 37 mg/dL (40-59)
== END | disposition home or self-care (01) ==
LOC: LAB 09:31
PROVIDERS: ATTEND Internal Medicine
DX: E11.9 Type 2 diabetes mellitus without complications (principal); E66.9 Obesity, unspecified
CPT/HCPCS: 36415; 80061; 82043; 82306; 82570; 83036; 84153

== ENCOUNTER 2023-07-19 15:21 | Emergency (ER) | payer OTHER ==
[~2023-07-19] VITALS: Ht 175.3 cm; Wt 136.3 kg
[2023-07-19 16:10] VITALS: BP 107/49; PULSE 88; RESP 16; O2SAT 94
[2023-07-19 16:39] LABS: Basophils # (auto) 0 10 ^3/uL (0-0.2); Basophils % (auto) 0.5 % (0.0-2.0); Eosinophils # (auto) 0 10 ^3/uL (0-0.8); Eosinophils % (auto) 0.5 % (0.0-7.0); Hematocrit 51.7 % (41.0-53.0); Hemoglobin 16.8 g/dL (13.5-17.5); Lymphocytes # (auto) 2.6 10 ^3/uL (0.4-5.4); Lymphocytes % (auto) 26.4 % (10.0-50.0); Mean Corpuscular Hemoglobin 29.1 pg (28.0-32.0); Mean Corpuscular Hgb Conc. 32.4 g/dL (32.0-36.0); Mean Corpuscular Volume 89.7 fL (80.0-100.0); Monocytes # (auto) 0.9 10 ^3/uL (0-1.3); Neutrophils # (auto) 6.4 10 ^3/uL (1.6-8.6); Neutrophils % (auto) 63.6 % (37.0-80.0); Nucleated Red Blood Cells % 0.2 %; Red Blood Cells 5.76 10^6/uL (4.5-5.90); Red Cell Distribution Width 14.6 % (11.8-14.3)
[2023-07-19 16:58] LABS: Alanine Aminotransferase 23 U/L (7-40); Alkaline Phosphatase 75 U/L (46-116); Aspartate Aminotransferase 26 U/L (13-40); BUN/Creatinine Ratio 13.8 (10.0-20.0); Blood Urea Nitrogen 17 mg/dL (9-23); Calcium 10.4 mg/dL (8.7-10.4); Chloride 110 mmol/L (98-107); Glucose 98 mg/dL (74-106); Potassium 3.8 mmol/L (3.5-5.1); Sodium 141 mmol/L (136-145)
[2023-07-19 16:59] LABS: Bilirubin, Total 0.5 mg/dL (0.2-1.0)
[2023-07-19 17:06] LABS: Blood Alcohol 344.2 mg/dL (<10)
== END 2023-07-20 01:26 | disposition home or self-care (01) ==
LOC: EDBD 15:21 → EDUNIT# 15:21 → ER 15:21
DX: R40.4 Transient alteration of awareness (principal); F10.129 Alcohol abuse with intoxication, unspecified; Z79.899 Other long term (current) drug therapy; Z79.82 Long term (current) use of aspirin; Z79.84 Long term (current) use of oral hypoglycemic drugs
CPT/HCPCS: 36415; 80053; 80320; 85025

== ENCOUNTER → 2023-07-24 | Outpatient (CLI) | payer OTHER | END | disposition home or self-care (01) | LOC: Rad HDHVI 08:23 | PROVIDERS: ATTEND Internal Medicine Cardiovascular Disease | DX: R06.02 Shortness of breath (principal) | CPT/HCPCS: 71046 ==

== ENCOUNTER → 2023-09-04 | Outpatient (CLI) | payer OTHER ==
[2023-09-04 11:45] LABS: Erythrocyte Sedimentation Rate 1 mm/hr (0-20)
== END | disposition home or self-care (01) ==
LOC: LAB 10:40
PROVIDERS: ATTEND Internal Medicine
DX: E11.9 Type 2 diabetes mellitus without complications (principal); M54.50 Low back pain, unspecified; I48.91 Unspecified atrial fibrillation
CPT/HCPCS: 36415; 80162; 83036; 85652

== ENCOUNTER → 2024-01-03 | Outpatient (CLI) | payer OTHER | END | disposition home or self-care (01) | LOC: LAB 16:10 | PROVIDERS: ATTEND Family Medicine | DX: L72.9 Follicular cyst of the skin and subcutaneous tissue, unspecified (principal); D48.5 Neoplasm of uncertain behavior of skin ==

== ENCOUNTER 2024-02-13 07:17 | Day surgery (SDC) | payer OTHER ==
[2024-02-11 11:08] LABS: Basophils # (auto) 0 10 ^3/uL (0-0.2); Hemoglobin 18.7 g/dL (13.5-17.5); Mean Corpuscular Volume 88.2 fL (80.0-100.0); Neutrophils # (auto) 5.2 10 ^3/uL (1.6-8.6); Nucleated Red Blood Cells % 0.3 %
[2024-02-11 11:10] LABS: Basophils % (auto) 0.4 % (0.0-2.0); Eosinophils # (auto) 0 10 ^3/uL (0-0.8); Eosinophils % (auto) 0.5 % (0.0-7.0); Lymphocytes # (auto) 1.7 10 ^3/uL (0.4-5.4); Mean Corpuscular Hemoglobin 29.2 pg (28.0-32.0); Mean Corpuscular Hgb Conc. 33.1 g/dL (32.0-36.0); Monocytes # (auto) 0.5 10 ^3/uL (0-1.3); Monocytes % (auto) 6.9 % (0.0-12.0); Neutrophils % (auto) 69.2 % (37.0-80.0); Red Blood Cells 6.39 10^6/uL (4.5-5.90); Red Cell Distribution Width 14.7 % (11.8-14.3); White Blood Cell 7.5 10^3/uL (4.4-10.8)
[2024-02-11 11:17] LABS: Hematocrit 56.3 % (41.0-53.0)
[2024-02-11 11:26] LABS: INR 1.07 (0.9-1.15); Partial Thromboplastin Time 27.9 SEC (24.5-34.5); Prothrombin Time 11.2 sec (9.3-11.8)
[2024-02-11 11:50] LABS: Calcium 12.5 mg/dL (8.5-10.1); Chloride 109 mmol/L (98-107); Sodium 139 mmol/L (136-145)
[2024-02-11 11:51] LABS: Anion Gap 5 (5-15); Carbon Dioxide 25 mmol/L (20-30)
[2024-02-11 11:56] LABS: BUN/Creatinine Ratio 15.1 (10.0-20.0); Blood Urea Nitrogen 13 mg/dL (9-23); Glucose 122 mg/dL (74-106)
[2024-02-13] VITALS (7 sets, daily range): BP systolic 100–122; BP diastolic 69–84; PULSE 93–110; RESP 15–19; TEMP 98; O2SAT 94–99
[~2024-02-13] VITALS: Ht 175.3 cm; Wt 106.6 kg
[~2024-02-13 07:17] MED LIST changes: -AMIO200T50 PO; -ASPI81CH74 PO; -CARV12.544 PO; -DIGO0.12 PO; -DIGO0.25; -DIGO0.25 PO; -FEXO-131; -FEXO-42 PO; +FLUT50SP28; -FURO40TA4 PO; +LISI-275 PO; -LOS25T PO; -LOSA25TA15 PO; +LOSA25TA5 PO; -METF-370 PO; -METO-6 PO; -METO1TAB9; +METO1TAB9 PO; +NITR0.4S29 SL; -PANT40TA2 PO; +TIRZ10IN SC; -TIRZ2.5I SC; +TRAM50TA2 PO
[2024-02-13] MEDS ORDERED: fentaNYL CITRATE 100 MCG/2 ML VL ONE ×2 (09:50→10:51)
[2024-02-13] MEDS ORDERED: VANCOMYCIN HCL 1000 MG VL ONE ×2 (09:50→10:32)
[2024-02-13] MEDS ORDERED: MIDAZOLAM HCL 2MG/2ML 2ml VIAL (1mg/ml) ONE ×2 (09:50→10:52)
[2024-02-13] MEDS ORDERED: LIDOCAINE 2%HCL (LOCAL ANESTH.) INJ 20ML MDV ONE (09:51)
[2024-02-13] MEDS ORDERED: VANCOMYCIN 1GM/200ML 0 ML IV ONE (09:51)
[2024-02-13] MEDS ORDERED: VANCOMYCIN 1GM/200ML 200 ML IV ONE (09:52)
[2024-02-13] MEDS ORDERED: CEPH500C PO (12:26)
== END 2024-02-13 13:50 | disposition home or self-care (01) ==
LOC: CATH 07:17
PROVIDERS: ATTEND Internal Medicine Cardiovascular Disease
DX: Z45.018 Encounter for adjustment and management of other part of cardiac pacemaker (principal); T82.120A Displacement of cardiac electrode, initial encounter; R06.02 Shortness of breath; I48.91 Unspecified atrial fibrillation; D68.69 Other thrombophilia; I49.5 Sick sinus syndrome; R07.9 Chest pain, unspecified; I11.0 Hypertensive heart disease with heart failure; I50.9 Heart failure, unspecified; G47.30 Sleep apnea, unspecified; E66.01 Morbid (severe) obesity due to excess calories; Z68.34 Body mass index [BMI] 34.0-34.9, adult; Z79.899 Other long term (current) drug therapy; Z98.890 Other specified postprocedural states; Z87.891 Personal history of nicotine dependence; Z82.49 Family history of ischemic heart disease and other diseases of the circulatory system; Z83.42 Family history of familial hypercholesterolemia; Z83.3 Family history of diabetes mellitus; Y82.9 Unspecified medical devices associated with adverse incidents
CPT/HCPCS: 33215; 33216; 33235; 36415; 71045; 80048; 85025; 85610; 85730; 93005; C1898; J2250; J3010; J3370; 99152; 99153

== ENCOUNTER → 2024-03-20 | Outpatient (CLI) | payer MEDICAID, OTHER ==
[~2024-03-20] MED LIST changes: +CEPH500C PO
== END | disposition home or self-care (01) ==
LOC: LAB 11:00
PROVIDERS: ATTEND Internal Medicine
DX: E21.3 Hyperparathyroidism, unspecified (principal)
CPT/HCPCS: 36415; 82565; 84520

== ENCOUNTER → 2024-03-24 | Outpatient (CLI) | payer MEDICAID ==
[~2024-03-24] MED LIST changes: +DIGO0.12 PO; +EMPA1TAB PO; +FLUT1SPR5; +METO-289 PO; +TIRZ2.5I SC
[2024-03-24 10:19] LABS: Alanine Aminotransferase 38 U/L (7-40); Albumin 4.7 g/dL (3.2-4.8); Alkaline Phosphatase 114 U/L (46-116); Anion Gap 5 (5-15); Aspartate Aminotransferase 28 U/L (13-40); BUN/Creatinine Ratio 17.4 (10.0-20.0); Blood Urea Nitrogen 15 mg/dL (9-23); Calcium 11.7 mg/dL (8.5-10.1); Carbon Dioxide 25 mmol/L (20-30); Chloride 108 mmol/L (98-107); Glucose 94 mg/dL (74-106); LDL Cholesterol 84 mg/dL (< 100); Potassium 4.3 mmol/L (3.5-5.1); Sodium 138 mmol/L (136-145); Triglycerides 85 mg/dL (< 150)
[2024-03-24 10:20] LABS: Bilirubin, Total 1.4 mg/dL (0.2-1.0); Cholesterol 160 mg/dL (< 200); HDL Cholesterol 59 mg/dL (40-59)
== END | disposition home or self-care (01) ==
LOC: LAB 09:11
PROVIDERS: ATTEND Internal Medicine
DX: E11.9 Type 2 diabetes mellitus without complications (principal)
CPT/HCPCS: 36415; 80053; 80061; 83036

== ENCOUNTER → 2024-03-25 | Outpatient (CLI) | payer MEDICAID ==
[2024-03-25 14:00] VITALS: BP 127/82; PULSE 110; RESP 18; O2SAT 99
[2024-03-25 14:10] VITALS: BP 123/81; PULSE 110; RESP 18; O2SAT 99
== END | disposition home or self-care (01) ==
LOC: Rad HDHVI 13:54
PROVIDERS: ATTEND Internal Medicine Cardiovascular Disease
DX: Z01.818 Encounter for other preprocedural examination (principal); I49.3 Ventricular premature depolarization; I48.91 Unspecified atrial fibrillation; R94.31 Abnormal electrocardiogram [ECG] [EKG]
CPT/HCPCS: 71046; 93005; G0463

== ENCOUNTER 2024-03-26 08:55 | Inpatient (IN) | payer MEDICAID, OTHER ==
[2024-03-25 14:51] LABS: Chloride 112 mmol/L (98-107); Potassium 4.1 mmol/L (3.5-5.1); Sodium 141 mmol/L (136-145)
[2024-03-25 14:52] LABS: Anion Gap 4 (5-15); Calcium 12.1 mg/dL (8.5-10.1); Carbon Dioxide 25 mmol/L (20-30)
[2024-03-25 14:57] LABS: BUN/Creatinine Ratio 17.1 (10.0-20.0); Basophils # (auto) 0 10 ^3/uL (0-0.2); Basophils % (auto) 0.6 % (0.0-2.0); Blood Urea Nitrogen 13 mg/dL (9-23); Eosinophils # (auto) 0.1 10 ^3/uL (0-0.8); Glucose 115 mg/dL (74-106); Hematocrit 52.1 % (41.0-53.0); Lymphocytes # (auto) 1.9 10 ^3/uL (0.4-5.4); Lymphocytes % (auto) 29.7 % (10.0-50.0); Mean Corpuscular Hemoglobin 29.4 pg (28.0-32.0); Mean Corpuscular Hgb Conc. 32.6 g/dL (32.0-36.0); Mean Corpuscular Volume 90.2 fL (80.0-100.0); Monocytes # (auto) 0.8 10 ^3/uL (0-1.3); Monocytes % (auto) 11.6 % (0.0-12.0); Neutrophils # (auto) 3.7 10 ^3/uL (1.6-8.6); Neutrophils % (auto) 57.1 % (37.0-80.0); Nucleated Red Blood Cells % 0.2 %; Red Blood Cells 5.78 10^6/uL (4.5-5.90); Red Cell Distribution Width 15.3 % (11.8-14.3); White Blood Cell 6.5 10^3/uL (4.4-10.8)
[2024-03-25 14:58] LABS: INR 1.08 (0.9-1.15); Partial Thromboplastin Time 25.6 SEC (24.5-34.5); Prothrombin Time 11.4 sec (9.3-11.8)
[2024-03-26] VITALS (10 sets, daily range): BP systolic 116–136; BP diastolic 64–91; PULSE 88–127; RESP 14–21; TEMP 97.5–98.4; O2SAT 91–96
[~2024-03-26] VITALS: Ht 175.3 cm; Wt 113.9 kg
[~2024-03-26 08:55] MED LIST changes: -CEPH500C PO; -LISI-275 PO; -METO1TAB9 PO; -TIRZ10IN SC
[2024-03-26] MEDS: HEPARIN SODIUM (PORCINE) 5000 UNITS/ML 1ML VIAL ONE (10:52)
[2024-03-26] MEDS: fentaNYL CITRATE 100 MCG/2 ML VL ONE (10:52)
[2024-03-26] MEDS: MIDAZOLAM HCL 2MG/2ML 2ml VIAL (1mg/ml) ONE (10:53)
[2024-03-26] MEDS: HEPARIN IN NS 1000Units/500mL 1,500 ML ONE (10:53)
[2024-03-26] MEDS: LIDOCAINE 2%HCL (LOCAL ANESTH.) INJ 20ML MDV ONE ×2 (10:53→11:56)
[2024-03-26] MEDS: VANCOMYCIN 1GM/200ML 200 ML IV ONE (11:42)
[2024-03-26] MEDS: VANCOMYCIN HCL 1000 MG VL ONE (11:56)
[2024-03-26] MEDS ORDERED: FLUTICASONE PROP NASAL SPR 0.05 % (50MCG) 16GM EACHNOSTRI PRN (13:30)
[2024-03-26] MEDS ORDERED: traMADol HCL 50 MG TAB PO PRN (13:30)
[2024-03-26] MEDS ORDERED: DEXTROSE (50%) 50ML SYRG IV PRN (13:30)
[2024-03-26] MEDS ORDERED: MORPHINE SULFATE INJ 2 MG/ml SYRG IV PRN (16:00)
[2024-03-26] MEDS ORDERED: NITROGLYCERIN 0.4 MG SL TAB SL PRN (16:00)
[2024-03-26] MEDS: InsuLIN REG 1unit/0.01ml Soln (100units/ml) SC SCH ×2 (16:26→21:30)
[2024-03-26] MEDS: ACCU-CHEK COMFORT CURVE STRIP VI SCH (16:26)
[2024-03-26] MEDS: METOPROLOL SUCCINATE XL 50 MG TAB PO ONE (21:28)
[2024-03-26] MEDS: ceFAZolin 1GM/50ML 50 ML IV SCH (21:28)
[2024-03-26] MEDS: ATORVASTATIN 20 MG TAB PO SCH (21:29)
[2024-03-26] MEDS: VANCOMYCIN 1GM/200ML 200 ML IV SCH (23:35)
[2024-03-27 05:00] VITALS: BP 128/85; PULSE 102; RESP 19; TEMP 97.8; O2SAT 98
[2024-03-27 08:15] VITALS: PULSE 101; O2SAT 95
[2024-03-27 08:34] VITALS: BP 128/94; PULSE 99; RESP 17; TEMP 97.8; O2SAT 96
[2024-03-27] MEDS ORDERED: DAPAGLIFLOZIN PROPANEDIOL 10 MG PO SCH (10:00)
[2024-03-27] MEDS: METOPROLOL SUCCINATE XL 50 MG TAB PO SCH (10:55)
[2024-03-27] MEDS: LOSARTAN POTASSIUM 25 MG TAB PO SCH (10:56)
[2024-03-27] MEDS: CHOLECALCIFEROL (VITD3) 1,000UNIT=25mCg TAB PO SCH (10:56)
[2024-03-27] MEDS: EMPAGLIFLOZIN 10 MG TAB PO SCH (10:57)
[2024-03-27] MEDS: DIGOXIN 0.125 MG TAB PO SCH (10:57)
[2024-03-27 13:00] VITALS: BP 129/88; PULSE 87; RESP 17; TEMP 98.2; O2SAT 92
== END 2024-03-27 15:00 | disposition home or self-care (01) | DRG 229 ==
LOC: CATH 08:55 → TELE 15:55 → TELE-WESTW 16:03
PROVIDERS: ADMIT Internal Medicine Cardiovascular Disease; ATTEND Internal Medicine
PROC: 02HK3NZ Insertion of Intracardiac Pacemaker into Right Ventricle, Percutaneous Approach (ICD-10-PCS; principal; 2024-03-26)
PROC: 0JPT0PZ Removal of Cardiac Rhythm Related Device from Trunk Subcutaneous Tissue and Fascia, Open Approach (ICD-10-PCS; 2024-03-26)
PROC: 02PA3MZ Removal of Cardiac Lead from Heart, Percutaneous Approach (ICD-10-PCS; 2024-03-26)
DX: T82.128A Displacement of other cardiac electronic device, initial encounter (principal); Z00.6 Encounter for examination for normal comparison and control in clinical research program; I49.5 Sick sinus syndrome; E11.9 Type 2 diabetes mellitus without complications; E66.01 Morbid (severe) obesity due to excess calories; T44.7X5A Adverse effect of beta-adrenoreceptor antagonists, initial encounter; Y83.8 Other surgical procedures as the cause of abnormal reaction of the patient, or of later complication, without mention of misadventure at the time of the procedure; E78.00 Pure hypercholesterolemia, unspecified; I10 Essential (primary) hypertension; I48.91 Unspecified atrial fibrillation; Z68.37 Body mass index [BMI] 37.0-37.9, adult; Y92.89 Other specified places as the place of occurrence of the external cause
CPT/HCPCS: 33233; 33235; 36415; 71045; 80048; 82962; 85025; 85610; 85730; 93005; 99152; G0378; J2250

== ENCOUNTER → 2024-08-04 | Outpatient (CLI) | payer MEDICAID, OTHER | END | disposition home or self-care (01) | LOC: XYW 08:17 | PROVIDERS: ATTEND Internal Medicine | DX: D35.1 Benign neoplasm of parathyroid gland (principal); E83.52 Hypercalcemia | CPT/HCPCS: 78070; A9500 ==

== ENCOUNTER 2024-10-28 14:35 | Emergency (ER) | payer MEDICAID, OTHER ==
[~2024-10-28] VITALS: Ht 175.3 cm; Wt 113.5 kg
[2024-10-28 15:00] VITALS: PULSE 28; RESP 20; O2SAT 90
--- NOTE | 2024-10-28 15:07 | ED.PDOC ---
Altered Mental Status HPI Comments 63 Y M, BIBA, presents to ED with CC of ALOC. Per EMS, patient was found outside apartment complex and states he hit his head. Patient has a laceration to right eyebrow; no other abrasions are present. Patient is +ETOH intoxication, and is currently uncooperative and combative. Chief Complaint: ALOC Time Seen by MD: 15:00 Primary Care Provider: UTO Reviewed Notes: Nurses Notes, Policy Officer Notes, Medications, Allergies Allergies: Coded Allergies: NO KNOWN ALLERGIES (Unverified , 12/21/20) Home Meds Reported Medications Empagliflozin (Jardiance) 10 Mg Tab, 10 MG PO DAILY for DIABETES, TAB 03/25/24 Fluticasone Propionate (Nasal) (Flonase Allergy Relief) 50 Mcg/Act Spr, 50 MCG NA DAILY for ALLEGIES, SPRAY 03/25/24 Tirzepatide (Mounjaro) 2.5 Mg/0.5 Ml Inj, 2.5 MG SC QWEEKLY for SUNDAYS, INJ 03/25/24 Metoprolol Succinate (Metoprolol Succinate Er) 50 Mg Tab, 3 TAB PO DAILY for HTN, #30 TAB 5 Refills 03/25/24 Digoxin (Digoxin) 125 Mcg Tab, 125 MCG PO DAILY for ARRHYTHMIA, TAB 03/25/24 Losartan Potassium (Cozaar) 25 Mg Tab, 1 TAB PO DAILY for HYPERTENSION 02/11/24 Nitroglycerin (NTROSTAT SUBLINGUAL) 0.4 Mg Sl, 1 TAB SL *MAY REPEAT EVERY 5 MINUTES X 3 TOTAL IF NO RELIEF, INITIATE ANALGESIC THERAPY. NOTIFY PHYSICIAN *Do not crush. 02/11/24 Fluticasone Propionate (Nasal) (Allergy Relief) 50 Mcg/Act Spr, 1 SPR NA DAILYP PRN for NASAL CONGESTION 02/11/24 Tramadol Hcl (Tramadol Hcl) 50 Mg Tab, 1 TAB PO DAILY PRN for MODERATE PAIN (4-6 PAIN SCALE) 02/11/24 Metformin Hydrochloride (Metformin Hydrochloride) 500 Mg Tab, 1 TAB PO BID for DIABETES HOLD for 2 days; RESUME on Saturday02-15-24. 02/12/23 Apixaban Base (ELIQUIS) 5 Mg Tab, 1 TAB PO BID for PACEMAKER 02/12/23 Cholecalciferol (VITAMIN D3) 2,000 Unit Tab, 1 TAB PO DAILY for SUPPLEMENT 07/17/22 Dapagliflozin Propanediol (Farxiga) 10 Mg Tab, 1 TAB PO DAILY for DIABETES 07/17/22 Atorvastatin Calcium (ATORVASTATIN CALCIUM) 40 Mg Tab, 1 TAB PO QPM for HIGH CHOLESTEROL 12/22/20 Information Source: Patient, Emergency Med Personnel Mode of Arrival: EMS Severity: Mild Timing: Hours Duration: Since onset Prehospital treatment: C-Collar Quality: Other (combative) Past Medical History PAST MEDICAL HISTORY: High Lipids, HTN, MS Surgical History: Hernia Repair Family History Family History: Unknown Social History Smoker: Non-Smoker Alcohol: Denies ETOH Use Drugs: Denies Drug Use Lives In: Home Constitutional: denies: chills, diaphoresis, fatigue, fever, malaise, sweats, weakness, others EENTM: denies: blurred vision, double vision, ear bleeding, ear discharge, ear drainage, ear pain, ear ringing, eye pain, eye redness, hearing loss, mouth pain, mouth swelling, nasal discharge, nose bleeding, nose congestion, nose pain, photophobia, tearing, throat pain, throat swelling, voice changes, others Respiratory: denies: cough, hemoptysis, orthopnea, SOB at rest, shortness of breath, SOB with excertion, stridor, wheezing, others Cardiovascular: denies: chest pain, dizzy spells, diaphoresis, Dyspnea on exertion, edema, irregular heart beat, left arm pain, lightheadedness, palpitations, PND, syncope, others Gastrointestinal: denies: abdomen distended, abdominal pain, blood streaked bowels, constipated, diarrhea, dysphagia, difficulty swallowing, hematemesis, melena, nausea, poor appetite, poor fluid intake, rectal bleeding, rectal pain, vomiting, others Genitourinary: denies: burning, dysuria, flank pain, frequency, hematuria, incontinence, penile discharge, penile sore, pain, testicle pain, testicle swelling, urgency, others Neurological: denies: dizziness, fainting, headache, left sided numbness, left sided weakness, numbness, paresthesia, pre-existing deficit, right sided numbness, right sided weakness, seizure, speech problems, tingling, tremors, weakness, others Musculoskeletal: denies: back pain, gout, joint pain, joint swelling, muscle pain, muscle stiffness, neck pain, others Integumetry: denies: bruises, change in color, change in hair/nails, dryness, laceration, lesions, lumps, rash, wounds, others Allergic/Immunocompromised: denies: Difficulty Healing, Frequent Infections, Hives, Itching, others Hematologic/Lymphatic: denies: anemia, blood clots, easy bleeding, easy bruising, swollen glands, others Endocrine: denies: excessive hunger, excessive sweating, excessive thirst, excessive urination, flushing, intolerance to cold, intolerance to heat, unexplained weight gain, unexplained weight loss, others Psychiatric: denies: anxiety, bipolar disorder, depression, hopeless, panic disorder, schizophrenia, sleepless, suicidal, others Unable to Obtain due to: Altered Mental Status All Other Systems: Reviewed and Negative Physical Exam General Appearance: Mild Distress, Other (The patient was somewhat belligerent upon arrival to the emergency department's) HEENT: Normal ENT Inspection, Pharynx Normal, TMs Normal Neck: Full Range of Motion, Non-Tender, Other (The patient was in a C-collar) Respiratory: Chest Non-Tender, Lungs Clear, No Accessory Muscle Use, No Respiratory Distress, Normal Breath Sounds Cardiovascular: No Edema, No JVD, No Murmur, No Gallop, Normal Peripheral Pulses, Regular Rate/Rhythm Breast Exam: Deferred Gastrointestinal: No Organomegaly, Non Tender, No Pulsatile Mass, Normal Bowel Sounds, Soft Genitalia: Deferred Pelvic: Deferred Rectal: Deferred Extremities: No calf tenderness, Normal capillary refill, Normal inspection, Normal range of motion, Non-tender, No pedal edema Musculoskeletal : Apperance: Normal Neurologic: Alert, sewing machine tester II-XII nml as Tested, No Motor Deficits, Normal Affect, Normal Mood, No Sensory Deficits Cerebellar Function: Normal Reflexes: Normal Skin: Dry, Normal Color, Warm Lymphatic: No Adenopathy Was a procedure done? Was a procedure done?: No Differential Diagnosis (ALOC) Differential Diagnosis: ETOH Intoxication X-Ray, Labs, Meds, VS Vital Signs Date Time Temp Pulse Resp B/P (MAP) Pulse Ox O2 Delivery O2 Flow Rate FiO2 10/28/24 21:24 98.3 90 18 110/59 (76) 95 98.3 10/28/24 20:00 121 18 134/74 (94) 97 10/28/24 19:45 123 18 142/68 (92) 97 10/28/24 19:30 113 15 142/68 (92) 95 10/28/24 19:15 117 15 153/66 (95) 95 10/28/24 19:00 121 15 141/60 (87) 95 10/28/24 18:45 119 15 143/67 (92) 96 10/28/24 18:30 115 15 133/68 (89) 96 10/28/24 18:15 110 15 134/56 (82) 96 10/28/24 18:00 107 19 133/73 (93) 96 10/28/24 17:45 117 19 113/62 (79) 96 10/28/24 17:30 115 19 120/53 (75) 96 10/28/24 17:15 116 19 120/58 (78) 95 10/28/24 17:00 109 15 121/58 (79) 94 10/28/24 16:45 107 25 131/43 (72) 95 10/28/24 16:30 104 16 116/68 (84) 93 10/28/24 16:00 128 13 123/46 (71) 97 10/28/24 15:45 117 20 114/52 (72) 98 10/28/24 15:30 121 20 119/46 (70) 98 10/28/24 15:00 28 20 90 Room Air* 0 21 10/28/24 15:00 128 20 130/66 (87) 90 10/28/24 14:40 98.0 126 18 148/96 (113) 97 Lab Test 10/28/24 17:33 10/28/24 15:19 Range/Units Sodium Level 145 136-145 mmol/L Potassium Level 3.7 3.5-5.1 mmol/L Chloride Level 110 H 98-107 mmol/L Carbon Dioxide Level 23 20-31 mmol/L Anion Gap 12 5-15 Blood Urea Nitrogen 12 9-23 mg/dL Creatinine 1.05 0.700-1.30 mg/dL Glomerular Filtration Rate Calc 79 >90 mL/min BUN/Creatinine Ratio 11.4 10.0-20.0 Serum Glucose 93 74-106 mg/dL Calcium Level 10.8 H 8.7-10.4 mg/dL Plasma/Serum Blood Alcohol 305.0 H <10 mg/dL White Blood Count 7.7 4.4-10.8 10^3/uL Red Blood Count 5.26 4.5-5.90 10^6/uL Hemoglobin 15.9 13.5-17.5 g/dL Hematocrit 48.5 41.0-53.0 % Mean Corpuscular Volume 92.2 80.0-100.0 fL Mean Corpuscular Hemoglobin 30.3 28.0-32.0 pg Mean Corpuscular Hemoglobin Concent 32.9 32.0-36.0 g/dL Red Cell Distribution Width 15.6 H 11.8-14.3 % Platelet Count 188 140-450 10^3/uL Mean Platelet Volume 9.4 6.9-10.8 fL Neutrophils (%) (Auto) 66.4 37.0-80.0 % Lymphocytes (%) (Auto) 21.5 10.0-50.0 % Monocytes (%) (Auto) 11.6 0.0-12.0 % Eosinophils (%) (Auto) 0.3 0.0-7.0 % Basophils (%) (Auto) 0.2 0.0-2.0 % Neutrophils # (Auto) 5.1 1.6-8.6 10 ^3/uL Lymphocytes # (Auto) 1.6 0.4-5.4 10 ^3/uL Monocytes # (Auto) 0.9 0-1.3 10 ^3/uL Eosinophils # (Auto) 0 0-0.8 10 ^3/uL Basophils # (Auto) 0 0-0.2 10 ^3/uL Nucleated Red Blood Cells 0.0 % Current Medications Medications (Trade) Dose Ordered Sig/Jayce Route Start Time Stop Time Status Last Admin Sodium Chloride 1,000 ml @ 1,000 mls/hr Q1H ONCE IVB 10/28/24 15:15 10/28/24 16:14 DC 10/28/24 16:43 CT scan of the head shows no sign of any abnormalities CT scan of the cervical spine shows: IMPRESSION: No displaced fractures or subluxations identified. Straightening and mild reversal of the cervical curvature may be in part related to patient positioning and/or muscular spasm. Relatively advanced multilevel degenerative changes. Ill-defined hypoattenuation in the left thyroid. Ultrasound may be obtained to further evaluate. The patient was given an IV Hep-Lock The patient was given a 1 L bolus of normal saline The CBC and chemistry panel are within normal limits The alcohol was 305 The patient was now awake and alert. We did advise him about the changes in his thyroid on CT scan but he is aware and states that he has is having it worked up at this time. The patient is able to ambulate without any difficulty in his being discharged Images Reviewed?: Images reviewed and evaluated by me Time of 1ST Reevaluation: 15:00 Reevaluation 1ST: Unchanged Time of 2ND Reevaluation: 21:30 Reevaluation 2ND: Improved Patient Education/Counseling: Diagnosis, Treatment, Prognosis, Need For Follow Up Family Education/Counseling: No Family Present Departure 1 Departure Time of Disposition: 21:30 Impression: Primary Impression: Alcohol intoxication Qualified Codes: F10.920 - Alcohol use, unspecified with intoxication, uncomplicated Additional Impressions: History of fall Blunt head trauma Qualified Codes: S09.8XXA - Other specified injuries of head, initial encounter Disposition: HOME / SELF CARE / HOMELESS Condition: Fair Discharged With: Self Critical Care Note Critical Care Time?: No Stability Stability form required: No Heart Score Heart Score: Heart Score Response (Comments) Value History N/A 0 EKG N/A 0 Age N/A 0 Risk Factors N/A 0 Troponin N/A 0 Total 0 I personally scribed for SUSAN ZELAYA MD ([email or web address]) on 10/28/24 at 15:07. Electronically submitted by Clara Rebollar ([email or web address]). I personally scribed for SUSAN ZELAYA MD ([email or web address]) on 10/28/24 at 15:13. Electronically submitted by Clara Rebollar [email or web address]). SUSAN ZELAYA MD Oct 28, 2024 15:07
[2024-10-28 15:55] LABS: Basophils # (auto) 0 10 ^3/uL (0-0.2); Basophils % (auto) 0.2 % (0.0-2.0); Eosinophils # (auto) 0 10 ^3/uL (0-0.8); Eosinophils % (auto) 0.3 % (0.0-7.0); Hematocrit 48.5 % (41.0-53.0); Hemoglobin 15.9 g/dL (13.5-17.5); Lymphocytes # (auto) 1.6 10 ^3/uL (0.4-5.4); Lymphocytes % (auto) 21.5 % (10.0-50.0); Mean Corpuscular Hemoglobin 30.3 pg (28.0-32.0); Mean Corpuscular Hgb Conc. 32.9 g/dL (32.0-36.0); Mean Corpuscular Volume 92.2 fL (80.0-100.0); Monocytes # (auto) 0.9 10 ^3/uL (0-1.3); Monocytes % (auto) 11.6 % (0.0-12.0); Neutrophils # (auto) 5.1 10 ^3/uL (1.6-8.6); Neutrophils % (auto) 66.4 % (37.0-80.0); Platelet Count (auto) 188 10^3/uL (140-450); Red Blood Cells 5.26 10^6/uL (4.5-5.90); Red Cell Distribution Width 15.6 % (11.8-14.3); White Blood Cell 7.7 10^3/uL (4.4-10.8)
[2024-10-28] MEDS: SODIUM CHLORIDE 0.9% 1,000 ML IVB ONE (16:43)
[2024-10-28 18:48] LABS: Anion Gap 12 (5-15)
[2024-10-28 19:04] LABS: BUN/Creatinine Ratio 11.4 (10.0-20.0); Blood Urea Nitrogen 12 mg/dL (9-23); Calcium 10.8 mg/dL (8.7-10.4); Carbon Dioxide 23 mmol/L (20-31); Chloride 110 mmol/L (98-107); Glucose 93 mg/dL (74-106); Potassium 3.7 mmol/L (3.5-5.1); Sodium 145 mmol/L (136-145)
--- NOTE | 2024-10-28 20:59 | DVH ---
CT BRAIN WITHOUT CONTRAST HISTORY: fall TECHNIQUE: Axial scans were obtained from the skull base through the vertex without contrast. Sagitta l and coronal reformats were generated. One or more of the following radiation dose reduction techniq ues were used for this examination: automated exposure control, adjustment of the mA and/or kV accord ing to patient size, use of iterative reconstruction technique. COMPARISON: At the time of review, no prior studies are available for comparison. FINDINGS: Streak artifact somewhat limits evaluation of the skull base and posterior fossa. Generalized atrophy. As visualized, no definite acute intracranial hemorrhage or evidence of large v essel territorial infarction is identified at this time. No midline shift. The basilar cisterns are patent. The visualized paranasal sinuses and mastoid air cells are clear. No grossly displaced calvarial frac ture is identified. IMPRESSION: No acute intracranial findings.
--- NOTE | 2024-10-28 21:02 | DVH ---
CT OF THE CERVICAL SPINE WITHOUT CONTRAST HISTORY: fall COMPARISON: None available. TECHNIQUE: Helical images through the cervical spine were obtained without contrast. Sagittal and cor onal reformats were obtained. One or more of the following radiation dose reduction techniques were u sed for this examination: automated exposure control, adjustment of the mA and/or kV according to pat ient size, use of iterative reconstruction technique. FINDINGS: Ill-defined hypoattenuation in the left thyroid. Straightening and mild reversal of the cervical curvature. No grossly displaced fractures or subluxat ions are evident. Multilevel disc space narrowing and marginal osteophyte formation most notable from C5-C7. Multilevel posterior facet arthropathy is also noted. The bony spinal canal is grossly patent . Prevertebral soft tissues appear within normal limits. IMPRESSION: No displaced fractures or subluxations identified. Straightening and mild reversal of the cervical curvature may be in part related to patient positioni ng and/or muscular spasm. Relatively advanced multilevel degenerative changes. Ill-defined hypoattenuation in the left thyroid. Ultrasound may be obtained to further evaluate.
[2024-10-28 21:24] VITALS: BP 110/59; PULSE 90; RESP 18; TEMP 98.3; O2SAT 95
== END 2024-10-28 21:29 | disposition home or self-care (01) ==
LOC: ER 14:35 → EDBD 14:35 → ER 21:29
DX: S01.111A Laceration without foreign body of right eyelid and periocular area, initial encounter (principal); F10.129 Alcohol abuse with intoxication, unspecified; I10 Essential (primary) hypertension; E78.5 Hyperlipidemia, unspecified; I25.2 Old myocardial infarction; Z98.890 Other specified postprocedural states; Z79.01 Long term (current) use of anticoagulants; Z79.84 Long term (current) use of oral hypoglycemic drugs; Z79.899 Other long term (current) drug therapy; W18.39XA Other fall on same level, initial encounter; Y93.89 Activity, other specified; Y92.89 Other specified places as the place of occurrence of the external cause; Y99.8 Other external cause status; Y90.0 Blood alcohol level of less than 20 mg/100 ml
CPT/HCPCS: 36415; 70450; 72125; 80048; 80320; 85025; 96360; 99285; J7030

== ENCOUNTER → 2024-12-10 | Outpatient (CLI) | payer MEDICAID, OTHER ==
--- NOTE | 2024-12-18 14:17 | DVHSR ---
APPROVED REPORT EXAM: Two-dimensional and M-mode echocardiogram with Doppler and color Doppler. DIMENSIONS LVDd4.8 (3.8-5.7cm)LA (2D)5.6 (1.9-4.0cm)Aortic Root3.5 (2.0-3.7cm) LVDs3.5 (2.5-4.0cm)LA (MM) (1.9-4.0cm)Aortic Cusp Exc2.1 (1.5-2.0cm) EF (%) 53.4 (55-70%)Rt. Atrium5.1 (1.9-4.0cm)Asc. Aorta cm IVSd1.4 (0.7-1.1cm)RV (D)4.0 (1.8-2.4cm) PWd1.0 (0.7-1.1cm) Mitral Valve MitralMitral Stenosis E wave0.81m/sMV Mean GR.mmHg A wavem/sMV Peak GR.70mmHg E/A ratio0.02D MVAcm2 Aortic Valve Aortic ValveAortic Stenosis V10.84m/Park Mean GR.3mmHg V21.06m/Park Peak GR.5mmHg AI P 1/2 [id number] Pulmonic Valve V20.65m/s Tricuspid Valve TR Velocity1.65m/s [id number] LEFT VENTRICLE The Ejection Fraction is 50-55%. ATRIA The left atrium is mildly dilated. The right atrium is mildly dilated. MITRAL VALVE Mitral annular calcification is mild. Mitral regurgitation is moderate. PULMONIC VALVE The pulmonic valve is not well visualized. TRICUSPID VALVE The tricuspid valve is grossly normal. There is trace tricuspid regurgitation. AORTIC VALVE There is mild aortic regurgitation. GREAT VESSELS The aortic root is normal size. PERICARDIAL EFFUSION There is no pericardial effusion. Conclusion EF 45-50% LAE RACQUEL MOD MR MILD AI
== END | disposition home or self-care (01) ==
LOC: Rad HDHVI 09:55
PROVIDERS: ATTEND Internal Medicine Cardiovascular Disease
DX: E78.5 Hyperlipidemia, unspecified (principal); Z00.00 Encounter for general adult medical examination without abnormal findings
CPT/HCPCS: 93306

== ENCOUNTER → 2025-01-06 | Outpatient (CLI) | payer MEDICAID ==
[2025-01-06 12:56] LABS: Alanine Aminotransferase 25 U/L (7-40); Alkaline Phosphatase 87 U/L (46-116); Anion Gap 10 (5-15); Aspartate Aminotransferase 19 U/L (13-40); BUN/Creatinine Ratio 12.3 (10.0-20.0); Blood Urea Nitrogen 10 mg/dL (9-23); Carbon Dioxide 24 mmol/L (20-31); Chloride 106 mmol/L (98-107); Glucose 93 mg/dL (74-106); Sodium 140 mmol/L (136-145)
[2025-01-06 12:57] LABS: Bilirubin, Total 0.9 mg/dL (0.2-1.0); Total Protein 6.9 g/dL (5.7-8.2)
[2025-01-06 12:59] LABS: Albumin 4.8 g/dL (3.2-4.8); Calcium 11.7 mg/dL (8.7-10.4)
[2025-01-06 13:00] LABS: Creatinine, Urine 103.34 mg/dL (30.0-125.0)
== END | disposition home or self-care (01) ==
LOC: LAB 11:35
PROVIDERS: ATTEND Internal Medicine
DX: E11.9 Type 2 diabetes mellitus without complications (principal); E78.5 Hyperlipidemia, unspecified; Z00.00 Encounter for general adult medical examination without abnormal findings
CPT/HCPCS: 36415; 80053; 82043; 82570; 83036; 84443

== ENCOUNTER → 2025-05-12 | Outpatient (CLI) | payer MEDICAID ==
[~2025-05-12] MED LIST changes: +[UNRECOGNIZED DRUG - CODE] PO
[2025-05-12 10:23] LABS: Triglycerides 82 mg/dL (< 150)
[2025-05-12 10:25] LABS: Cholesterol 129 mg/dL (< 200); HDL Cholesterol 55 mg/dL (40-59)
== END | disposition home or self-care (01) ==
LOC: LAB 09:45
PROVIDERS: ATTEND Internal Medicine
DX: E11.40 Type 2 diabetes mellitus with diabetic neuropathy, unspecified (principal); E78.5 Hyperlipidemia, unspecified; E21.3 Hyperparathyroidism, unspecified; M17.0 Bilateral primary osteoarthritis of knee
CPT/HCPCS: 36415; 80061; 82306; 82607; 84403

== ENCOUNTER → 2025-07-22 | Outpatient (CLI) | payer MEDICAID | END | disposition home or self-care (01) | LOC: Rad HDHVI 15:56 | PROVIDERS: ATTEND Internal Medicine Cardiovascular Disease | DX: I08.3 Combined rheumatic disorders of mitral, aortic and tricuspid valves (principal); I11.9 Hypertensive heart disease without heart failure; I42.9 Cardiomyopathy, unspecified | CPT/HCPCS: 93306 ==

== ENCOUNTER → 2025-08-12 | Outpatient (CLI) | payer MEDICAID ==
[2025-08-12 13:36] LABS: Urine Protein, UAD Negative (Negative)
== END | disposition home or self-care (01) ==
LOC: LAB 13:09
PROVIDERS: ATTEND Internal Medicine
DX: E21.3 Hyperparathyroidism, unspecified (principal)
CPT/HCPCS: 36415; 81001; 83970

== ENCOUNTER 2025-10-27 09:32 | Outpatient (CLI) | payer MEDICAID ==
[~2025-10-27] VITALS: Ht 175.3 cm; Wt 90.7 kg
[2025-10-27 09:35] VITALS: BP 123/73; PULSE 82; RESP 17; O2SAT 98
[2025-10-27 09:51] VITALS: BP 119/79; PULSE 87; RESP 18; O2SAT 99
[2025-10-27] MEDS ORDERED: METO-289 PO (11:30)
[2025-10-28] MEDS ORDERED: IODIXANOL 320MG/ML 100ML BTL IV ONE (07:37)
[2025-10-28] MEDS ORDERED: LIDOCAINE 2%HCL (LOCAL ANESTH.) INJ 20ML MDV ONE ×3 (07:58→08:51)
[2025-10-28] MEDS ORDERED: ANGIOMAX 250 MG VIAL IV ONE (08:24)
[2025-10-28] MEDS ORDERED: fentaNYL CITRATE 100 MCG/2 ML VL ONE (08:24)
[2025-10-28] MEDS ORDERED: MIDAZOLAM HCL 2MG/2ML 2ml VIAL (1mg/ml) ONE (08:25)
[2025-10-28] MEDS ORDERED: SODIUM CHL 0.9% 0 ML ONE (08:25)
== END 2025-10-27 17:00 | disposition home or self-care (01) ==
LOC: CHF HDHVI 09:32
PROVIDERS: ATTEND Internal Medicine Cardiovascular Disease
DX: Z01.810 Encounter for preprocedural cardiovascular examination (principal); I25.10 Atherosclerotic heart disease of native coronary artery without angina pectoris; I48.91 Unspecified atrial fibrillation
CPT/HCPCS: 93005; G0463

== ENCOUNTER 2025-10-28 06:08 | Day surgery (SDC) | payer MEDICAID ==
[2025-10-27 13:03] LABS: Hematocrit 46.5 % (41.0-53.0); Hemoglobin 15.5 g/dL (13.5-17.5); Mean Corpuscular Hemoglobin 30.8 pg (28.0-32.0); Mean Corpuscular Volume 92.1 fL (80.0-100.0); Nucleated Red Blood Cells % 0.0 %
[2025-10-27 13:14] LABS: INR 1.12 (0.9-1.15); Partial Thromboplastin Time 30.7 SEC (24.5-34.5); Prothrombin Time 11.7 sec (9.3-11.8)
[2025-10-27 13:36] LABS: Chloride 105 mmol/L (98-107); Potassium 4.7 mmol/L (3.5-5.1); Sodium 141 mmol/L (136-145)
[2025-10-27 13:37] LABS: Anion Gap 8 (5-15); Carbon Dioxide 28 mmol/L (20-31)
[2025-10-27 13:38] LABS: Calcium 11.0 mg/dL (8.7-10.4)
[2025-10-27 13:42] LABS: BUN/Creatinine Ratio 10.6 (10.0-20.0); Blood Urea Nitrogen 9 mg/dL (9-23); Glucose 80 mg/dL (74-106)
[2025-10-28] VITALS (9 sets, daily range): BP systolic 109–148; BP diastolic 65–98; PULSE 89–105; RESP 12–24; O2SAT 92–98
[~2025-10-28 06:08] MED LIST changes: -DAPA1TAB4 PO; -EMPA1TAB PO; -LOSA25TA5 PO; -[UNRECOGNIZED DRUG - CODE] PO
--- NOTE | 2025-10-28 09:48 | DVHOP ---
DATE OF SURGERY: 10/28/2025 DATE OF SURGERY: 10/28/2025 PROCEDURES PERFORMED: * Selective left and right coronary angiography. * Right heart catheterization. * Russell-Jewels catheterization. * Conscious sedation given by al. * Right iliac Perclose device deployment. DESCRIPTION OF PROCEDURE: The patient was prepped and draped in the sterile condition. Xylocaine 1% was used to anesthetize the right groin. Using a Cook needle, right femoral artery was engaged. With Seldinger technique, a 6-Peruvian sheath in the right femoral artery. Similarly, a 6-Peruvian sheath was introduced in the right femoral vein. Using a 6-Peruvian balloon-tipped thermodilutional catheter, right-sided pressure tracings were obtained. Then, using a 6-Peruvian JL4 catheter and 6-Peruvian JR4 catheter, selective left and right coronary angiography was performed. Using a 6-Peruvian pigtail catheter, a ventriculogram was done. The patient had a small hematoma following angiography because the AngioSeal device did not deploy appropriately because of the patient's obesity and excessive amount of fat around the tissue insertion site. Otherwise, no other complications. RESULTS: * Left main calcified, but no flow restrictive lesion with mild intimal irregularity. * In the left anterior descending artery, mild diffuse disease with extensive small vessel disease. However, no flow restrictive lesions were noted. * Circumflex artery nondominant without any significant flow restrictive lesion with mild diffuse disease throughout with extensive small vessel disease. * Right coronary artery similarly, there is no stenosis, but the patient has mild intimal irregularity with extensive small vessel disease. * Left ventricular function shows global hypokinesis with an estimated EF around 25-30% with an LVEDP of 15 mmHg with no gradient across the aortic valve. * Right heart catheterization showed RA pressure of 10, RV pressure of 45/15, PA pressure of 48/20 with a capillary wedge pressure of 20. At this time, the patient has dilated cardiomyopathy secondary to small vessel disease, obesity, and secondary to metabolic abnormalities. At this time, aggressive afterload reduction should be initiated. Preload reduction should be initiated and monitored carefully. If the EF drops below any further, he may require an AICD implantation, although technically it is going to be a very difficult procedure since the patient had multiple dislodgement of leads despite appropriate position. CONCLUSION: The patient with cardiomyopathy secondary to combination ischemic and nonischemic in etiology, EF of 30%, LVEDP of 15 mmHg with left ventricular systolic pressure of 134, no gradient across the aortic valve. Right heart catheterization shows RA pressure of 10, RV pressure of 45/15, capillary wedge pressure of 20, PA pressure of 49/20. The patient should aggressively risk modify. Coronary anatomy shows mild intimal irregularity with extensive small vessel disease, but no significant epicardial stenosis was noted. Rancho Roper MD SA/MIKKI TID: [id number] RECEIPT: [id number]
--- NOTE | 2025-10-28 10:58 | DVHDS ---
DATE OF DISCHARGE: 10/28/2025 DISCHARGE DIAGNOSES: The patient with no significant epicardial disease with [id number] intimal irregularity. Extensive small vessel disease. EF is around 30%. LVEDP of 15 mmHg. Right heart catheterization: Capillary wedge pressure of 20, PA pressure of 49/20, RV pressure of 45/15, and RA pressure of 10. At this time, aggressive risk modification, medication management is the only option he has at this time. Continue to encourage the patient to lose weight. We will make further recommendations after I have seen him in clinic and reassess his situation in terms of medication list, and therapy will be appropriated for cardiomyopathy. Rancho Roper MD SA/DIV TID: [id number] RECEIPT: [id number]
--- NOTE | 2025-11-03 21:38 | DVHHP ---
ADMIT DATE: 10/28/2025 HISTORY OF PRESENT ILLNESS: The patient is 64 years old with history of hypertension, diabetes, diabetic neuropathy, vasculopathy, nephropathy, history of hyperlipidemia, history of sick sinus syndrome, . The patient has several attempts to put a permanent pacemaker shortness of breath. Echo 30%. The patient is now to undergo left and right heart catheterization to define coronary anatomy and hemodynamics to rule out any ____ abnormality as well. He denies any syncopal episodes. No melena, hematochezia. No hematemesis, hemoptysis. No hematuria. No history of any seizure disorder. No history of CVA. He does have peripheral vascular disease, history of congestive heart failure symptoms, history of sick sinus syndrome as mentioned above. FAMILY HISTORY: Negative. SOCIAL HISTORY: Currently is negative for any smoking or tobacco or alcohol use. He denies any recent travel. REVIEW OF SYSTEMS: No fever, no chills. No history of any liver disease. No history of ____ pulmonary embolism. ____. PHYSICAL EXAMINATION: VITAL SIGNS: Blood pressure is 134/87, pulse is 60 and regular. O2 saturation is 97% on room air. HEENT: Pupils are reactive. Funduscopic exam shows no ____ JVD appreciated. Carotid pulses are 2+ symmetrical. Normal upstroke and contour. Posterior pharynx without any exudate. No cervical adenopathy. No supraclavicular adenopathy. No nuchal rigidity. PULMONARY: Clear to auscultation. CARDIOVASCULAR: Regular rate without S3, without S4. PMI is ____. There is a soft systolic ____. No CVA tenderness. NEUROLOGIC: The patient is intact. DTRs are 2+ symmetrical. Cranial nerves 2-12 ____. ASSESSMENT AND PLAN: The patient with history of atrial fibrillation . Echocardiogram shows diminished left ventricular ejection fraction and poor perfusion abnormality on Cardiolite. The patient is now to undergo left and right heart catheterization ____. Rancho Roper MD SA/ TID: [id number] RECEIPT: [id number]
== END 2025-10-28 13:45 | disposition home or self-care (01) ==
LOC: CATH 06:08
PROVIDERS: ATTEND Internal Medicine Cardiovascular Disease
DX: R94.39 Abnormal result of other cardiovascular function study (principal); I48.91 Unspecified atrial fibrillation; I25.5 Ischemic cardiomyopathy; I42.8 Other cardiomyopathies; I25.10 Atherosclerotic heart disease of native coronary artery without angina pectoris; I11.0 Hypertensive heart disease with heart failure; I50.9 Heart failure, unspecified; I49.5 Sick sinus syndrome; E11.21 Type 2 diabetes mellitus with diabetic nephropathy; E11.40 Type 2 diabetes mellitus with diabetic neuropathy, unspecified; E11.51 Type 2 diabetes mellitus with diabetic peripheral angiopathy without gangrene; E78.5 Hyperlipidemia, unspecified; Z79.84 Long term (current) use of oral hypoglycemic drugs; Z79.899 Other long term (current) drug therapy; Z87.891 Personal history of nicotine dependence; G47.30 Sleep apnea, unspecified; Z82.49 Family history of ischemic heart disease and other diseases of the circulatory system; Z83.42 Family history of familial hypercholesterolemia; Z83.3 Family history of diabetes mellitus
CPT/HCPCS: 36415; 80048; 85025; 85610; 85730; 93460; C1760; C1769; C1894; Q9965; 99152